=== PATIENT | male | born 1945 | race Caucasian/White ===

== ENCOUNTER 2021-08-01 17:42 | Inpatient (IN) | payer MEDICARE, OTHER ==
[2021-08-01] MEDS ORDERED: Sodium Chloride 0.9% 1000 ML 1,000 ML IV STA (18:25)
[2021-08-01] MEDS ORDERED: Sodium Chloride 0.9% 1000 ML 1,000 ML ONE (18:41)
[2021-08-01 18:52] LABS: Absolute Neutrophil Ct (ANC) 3.58 x10^3/uL (1.4-6.9); Basophil (Absolute #) 0.03 x10^3/uL (0-0.4); Eosinophil (Absolute #) 0 x10^3/uL (0-0.5); Hematocrit 44.6 % (42-50); Hemoglobin 14.1 g/dL (12.5-18.0); Lymphocyte (Absolute #) 0.32 x10^3/uL (1.0-4.6); Lymphocytes % 7.5 % (24.0-44.0); Mean Cell Volume 83.4 fL (78-100); Mean Corpuscular Hemoglobin 26.4 pg (26-32); Mean Corpuscular Hgb Concent. 31.6 g/dL (32-36); Mean Platelet Volume 10.5 fL (7.5-11.0); Monocyte (Absolute #) 0.31 x10^3/uL (0.0-1.3); Monocytes % 7.2 % (0.0-12.0); Neutrophil % 83.7 % (36.0-66.0); Platelet Count 99 x10^3/uL (150-450); Red Blood Count 5.35 x10^6/uL (4.1-5.6); Red Cell Distribution Width 13.9 % (11.5-14.0); White Blood Count 4.3 x10^3/uL (4.0-10.5)
[2021-08-01 19:04] LABS: ANION GAP 12.2 MEQ/L (5-15); Calcium 9.3 mg/dL (8.4-10.2); Creatinine 1 1.45 mg/dL (0.66-1.25); EST GLOMERULAR FILTRATION RATE 50.3 ML/MIN; Potassium 3.7 mmol/L (3.5-5.1); Total Protein 6.9 g/dL (6.3-8.2)
--- NOTE | 2021-08-01 19:07 | ERPHSYRPT ---
- History of Present Illness Time Seen by Provider: 08/01/21 18:20 Source: patient, family Exam Limitations: no limitations Patient Subjective Stated Complaint: Pt c/o of hypertension Triage Nursing Assessment: Pt brought to the ER by his , hypertensive, tachypnic, denies pain, cough, not feeling well, pulses normal, skin n/w/d, has been having headaches due to BP but not at this time, doctor recently changed his BP meds in the past couple of weeks Physician History: Patient is a 76-year-old white male who presents with his with a complaint of elevated blood pressure. He has home his blood pressure was running 190s. They called their nurse practitioner and asked that he be seen in the emergency room for hypertension. On arrival he was discovered to have a temperature of 103.1 reports he has been having chills and has been sick for several days. He had earlier today had a horrible headache he has been coughing has been disoriented. The patient is oriented at the time of arrival. He denies of present any pain in his O2 sats on arrival were in the low 90s. Timing/Duration: day(s) (Several) Fever Severity: moderate Fever Therapy PASSENGER SERVICE REPRESENTATIVE: none Associated Symptoms: confusion, cough, headache Allergies/Adverse Reactions: No Known Drug Allergies Allergy (Verified 08/01/21 18:16) Home Medications: Lisinopril 10 mg [Zestril 10 MG] 20 mg PO DAILY 02/01/16 [History] Finasteride 5 mg [Proscar 5 MG] 5 mg PO DAILY 12/02/20 [History] Omeprazole 40 mg PO DAILY 12/02/20 [History] Rosuvastatin Calcium 20 mg PO DAILY 12/02/20 [History] Carvedilol 3.125 mg [Coreg 3.125 MG] 3.125 mg PO BID 08/01/21 [History] Latanoprost/Pf [Latanoprost 0.005% Eye Drop] 1 drop OP UD 08/01/21 [History] Hx Tetanus, Diphtheria Vaccination/Date Given: No Hx Influenza Vaccination/Date Given: No Hx Pneumococcal Vaccination/Date Given: No Travel Risk - International Travel Have you traveled outside of the country in past 3 weeks: No - Coronavirus Screening Are you exhibiting any of the following symptoms?: No Close contact with a COVID-19 positive Pt in past 14-21 Days: No - Vaccine Status Have you recieved a Covid-19 vaccination: Yes Cell Room Operator: Moderna - Vaccination Dates Date of 2cond Vaccination (if applicable): 07/2020 - Review of Systems Constitutional: Fever, Chills, Weakness Eyes: No Symptoms Ears, Nose, & Throat: No Symptoms Respiratory: Cough, No Dyspnea Cardiac: No Chest Pain, No Edema, No Syncope Abdominal/Gastrointestinal: No Abdominal Pain, No Nausea, No Vomiting, No Diarrhea Genitourinary Symptoms: No Dysuria Musculoskeletal: No Back Pain, No Neck Pain Skin: No Rash Neurological: Headache, No Dizziness, No Focal Weakness, No Sensory Changes Endocrine: No Symptoms Hematologic/Lymphatic: No Symptoms Immunological/Allergic: No Symptoms All Other Systems: Reviewed and Negative - Past Medical History Pertinent Past Medical History: Yes Neurological History: Migraines ENT History: No Pertinent History Cardiac History: High Cholesterol, Hypertension Respiratory History: No Pertinent History Endocrine Medical History: No Pertinent History Musculoskeletal History: No Pertinent History GI Medical History: No Pertinent History History: No Pertinent History Psycho-Social History: No Pertinent History Male Reproductive Disorders: No Pertinent History - Past Surgical History Past Surgical History: Yes Neuro Surgical History: No Pertinent History Cardiac: No Pertinent History Respiratory: No Pertinent History Gastrointestinal: Appendectomy Genitourinary: No Pertinent History Musculoskeletal: No Pertinent History Male Surgical History: No Pertinent History Other Surgical History: prostate biopsy - Social History Smoking Status: Never smoker Exposure to second hand smoke: No Drug Use: none Patient Lives Alone: No - Nursing Vital Signs Nursing Vital Signs: Initial Vital Signs Temperature 103.1 F 08/01/21 18:05 Pulse Rate 91 H 08/01/21 18:05 Respiratory Rate 26 H 08/01/21 18:05 Blood Pressure 170/77 08/01/21 18:05 O2 Sat by Pulse Oximetry 91 L 08/01/21 18:05 Pain Scale Pain Intensity 0 - Physical Exam General Appearance: moderate distress, alert Eye Exam: PERRL/EOMI ENT Exam: normal ENT inspection, No pharyngeal erythema, No tonsillar exudate Neck Exam: supple, full range of motion, No meningismus Respiratory Exam: no respiratory distress, crackles/rales, wheezing Cardiovascular/Chest Exam: normal heart sounds, regular rate/rhythm, No murmur, No edema Gastrointestinal/Abdominal Exam: soft, non tender, no distention Extremity Exam: non-tender, normal range of motion, normal inspection, normal capillary refill Neurologic Exam: alert, oriented x 3, cooperative, plasterer stucco II-XII nml as tested, normal mood/affect, sensation nml, No motor deficits Skin Exam: normal color, warm, dry, No rash SpO2: 91 - Course Nursing assessment & vital signs reviewed: Yes EKG Interpreted by Me: RATE (89), Sinus Rhythm, Left [place] Deviation, Non- specific ST Changes, Other (Probable anteroseptal infarct old poor R wave progression) - Radiology Exams Chest X-ray Interpretation: Teleradiologist Report Ordered Tests: Active Orders 24 hr Category Date Time Status EKG-ER Only STAT Care 08/01/21 18:25 Active IV Insertion STAT Care 08/01/21 18:25 Active CHEST 1 VIEW (PORTABLE) Stat Exams 08/01/21 18:26 Taken HEAD WITHOUT CONTRAST [CT] Stat Exams 08/01/21 18:26 Taken BLOOD CULTURE Stat Lab 08/01/21 18:48 Received CBC W DIFF Stat Lab 08/01/21 18:45 Completed CMP Stat Lab 08/01/21 18:45 Completed Lactic Acid Stat Lab 08/01/21 18:35 Completed [place] Screen Stat Lab 08/01/21 18:47 Completed TROPONIN Q3H Lab 08/01/21 18:48 Completed TROPONIN Q3H Lab 08/01/21 21:30 Ordered UA W/RFX CULTURE Stat Lab 08/01/21 Ordered Medication Summary Generic Name Dose Route Start Last Admin Trade Name Freq PRN Reason Stop Dose Admin Acetaminophen 1,000 mg 08/01/21 19:34 08/01/21 19:37 Acetaminophen 500 Mg Tablet PO 08/31/21 19:33 1,000 mg Q4H PRN PRN Administration HEADACHE Discontinued Medications Generic Name Dose Route Start Last Admin Trade Name Freq PRN Reason Stop Dose Admin Sodium Chloride 1,000 mls @ 999 mls/hr 08/01/21 18:25 08/01/21 18:45 Sodium Chloride 0.9% 1000 Ml IV 08/01/21 19:25 999 mls/hr .Q1H1M STA Administration Sodium Chloride Confirm 08/01/21 18:41 Sodium Chloride 0.9% 1000 Ml Administered 08/01/21 18:42 Dose 1,000 mls @ ud .ROUTE .STK-MED ONE Lab/Rad Data: Laboratory Result Diagrams 08/01/21 18:45 08/01/21 18:45 Laboratory Results 08/01/21 08/01/21 08/01/21 Range/Units 18:48 18:47 18:47 WBC (4.0-10.5) x10^3/uL RBC (4.1-5.6) x10^6/uL Hgb (12.5-18.0) g/dL Hct (42-50) % MCV (78-100) fL MCH (26-32) pg MCHC (32-36) g/dL RDW (11.5-14.0) % Plt Count (150-450) x10^3/uL MPV (7.5-11.0) fL Gran % (36.0-66.0) % Immature Gran % (Auto) (0.00-0.4) % Nucleat RBC Rel Count (0.00-0.1) % Eos # (Auto) (0-0.5) x10^3/uL Immature Gran # (Auto) (0.00-0.03) x10^3u/L Absolute Lymphs (auto) (1.0-4.6) x10^3/uL Absolute Monos (auto) (0.0-1.3) x10^3/uL Absolute Nucleated RBC (0.00-0.01) x10^3u/L Lymphocytes % (24.0-44.0) % Monocytes % (0.0-12.0) % Eosinophils % (0.00-5.0) % Basophils % (0.0-0.4) % Absolute Granulocytes (1.4-6.9) x10^3/uL Basophils # (0-0.4) x10^3/uL Sodium (137-145) mmol/L Potassium (3.5-5.1) mmol/L Chloride (98-107) mmol/L Carbon Dioxide (22-30) mmol/L Anion Gap (5-15) MEQ/L BUN (9-20) mg/dL Creatinine (0.66-1.25) mg/dL Estimated GFR ML/MIN Glucose (74-106) mg/dL Lactic Acid (0.4-2.0) Calcium (8.4-10.2) mg/dL Total Bilirubin (0.2-1.3) mg/dL AST (17-59) U/L ALT (0-50) U/L Alkaline Phosphatase (38-126) U/L Troponin I 0.017 (0.000-0.034) ng/mL Serum Total Protein (6.3-8.2) g/dL Albumin (3.5-5.0) g/dL Monoscreen NEGATIVE (Negative) Influenza Type A Ag NEGATIVE (NEGATIVE) Influenza Type B Ag NEGATIVE (NEGATIVE) RSV (PCR) NEGATIVE (Negative) SARS-CoV-2 (PCR) NEGATIVE (NEGATIVE) 08/01/21 08/01/21 08/01/21 Range/Units 18:45 18:45 18:35 WBC 4.3 (4.0-10.5) x10^3/uL RBC 5.35 (4.1-5.6) x10^6/uL Hgb 14.1 (12.5-18.0) g/dL Hct 44.6 (42-50) % MCV 83.4 (78-100) fL MCH 26.4 (26-32) pg MCHC 31.6 L (32-36) g/dL RDW 13.9 (11.5-14.0) % Plt Count 99 L (150-450) x10^3/uL MPV 10.5 (7.5-11.0) fL Gran % 83.7 H (36.0-66.0) % Immature Gran % (Auto) 0.9 H (0.00-0.4) % Nucleat RBC Rel Count 0.0 (0.00-0.1) % Eos # (Auto) 0 (0-0.5) x10^3/uL Immature Gran # (Auto) 0.04 H (0.00-0.03) x10^3u/L Absolute Lymphs (auto) 0.32 L (1.0-4.6) x10^3/uL Absolute Monos (auto) 0.31 (0.0-1.3) x10^3/uL Absolute Nucleated RBC 0.00 (0.00-0.01) x10^3u/L Lymphocytes % 7.5 L (24.0-44.0) % Monocytes % 7.2 (0.0-12.0) % Eosinophils % 0.0 (0.00-5.0) % Basophils % 0.7 (0.0-0.4) % Absolute Granulocytes 3.58 (1.4-6.9) x10^3/uL Basophils # 0.03 (0-0.4) x10^3/uL Sodium 138 (137-145) mmol/L Potassium 3.7 (3.5-5.1) mmol/L Chloride 102 (98-107) mmol/L Carbon Dioxide 27 (22-30) mmol/L Anion Gap 12.2 (5-15) MEQ/L BUN 29 H (9-20) mg/dL Creatinine 1.45 H (0.66-1.25) mg/dL Estimated GFR 50.3 ML/MIN Glucose 106 (74-106) mg/dL Lactic Acid 1.9 (0.4-2.0) Calcium 9.3 (8.4-10.2) mg/dL Total Bilirubin 1.00 (0.2-1.3) mg/dL AST 47 (17-59) U/L ALT 25 (0-50) U/L Alkaline Phosphatase 61 (38-126) U/L Troponin I (0.000-0.034) ng/mL Serum Total Protein 6.9 (6.3-8.2) g/dL Albumin 4.0 (3.5-5.0) g/dL Monoscreen (Negative) Influenza Type A Ag (NEGATIVE) Influenza Type B Ag (NEGATIVE) RSV (PCR) (Negative) SARS-CoV-2 (PCR) (NEGATIVE) - Progress Progress: improved Discussed with : Etelvina Will see patient in: hospital (observation) - Departure Departure Disposition: Observation Clinical Impression: Pneumonia Condition: Stable Critical Care Time: No Referrals: SERGE COWART NP [Primary Care Provider] - Follow up/PCP as directed
[2021-08-01 19:37] LABS: INFLUENZA A NEGATIVE (NEGATIVE); INFLUENZA B NEGATIVE (NEGATIVE); RESPIRATORY SYNCTIAL VIRUS NEGATIVE (Negative); SARS-CoV-2 Xpert Express NEGATIVE (NEGATIVE)
[2021-08-01] MEDS: TYLENOL EXTRA STRENGTH 500 MG PO PRN (19:37)
[2021-08-01] MEDS ORDERED: TORAdol 30 mg Injection IV PRN (19:46)
[2021-08-01] MEDS ORDERED: ROCEPHIN 1 Gm-D5w 50 ml Bag** 1 G/50 ML IVPB IV ONE (20:01)
[2021-08-01] MEDS: MOTRIN 600 MG PO PRN (21:05)
[2021-08-01] MEDS: Sodium Chloride 0.9% 1000 ML 1,000 ML IV SCH (21:05)
--- NOTE | 2021-08-01 21:51 | XRAY ---
Indication: High blood pressure. Comparison: July 03, 2016. Portable chest again hyperinflated with new mild right base infiltrate/atelectasis. Stable right lung calcified granulomas. Remaining heart and lungs unremarkable. Bony thorax intact. Comment: Preliminary interpretation made by [facility]. No critical discrepancy.
--- NOTE | 2021-08-01 21:53 | XRAY ---
Indication: High blood pressure. Fever. Multiple contiguous axial images obtained through the head without contrast. Comparison: None Age-appropriate global atrophy, minimal periventricular degenerative micro-ischemia bilaterally, and small focus old infarct right frontal lobe. No acute intracranial hemorrhage, abnormal extra-axial fluid collection, or mass effect. Fourth ventricle is midline without hydrocephalus. Bony calvarium intact. Visualized paranasal sinuses and mastoid air cells are clear. 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 Comment: Preliminary interpretation made by [facility]. No critical discrepancy.
[2021-08-01] MEDS ORDERED: Zithromax 500 MG/ 250 ML NaCl Premix 500 MG/250 ML IVPB IV SCH (22:00)
[2021-08-01] MEDS ORDERED: Coreg 3.125 MG PO ONE (22:00)
[2021-08-01] MEDS ORDERED: Zestril 20 MG PO ONE (22:00)
[2021-08-02] MEDS: TYLENOL EXTRA STRENGTH 500 MG PO PRN (02:40)
[2021-08-02] MEDS ORDERED: DUONEB 0.5-3 MG/3 ml Neb IH ONE (02:53)
[2021-08-02] MEDS ORDERED: DUONEB 0.5-3 MG/3 ml Neb IH PRN (02:55)
[2021-08-02 04:14] LABS: Mucus SLIGHT /HPF (NEGATIVE); RBC 0-2 /HPF (0-2)
[2021-08-02 04:15] LABS: Appearance CLEAR (CLEAR); Bilirubin NEGATIVE (NEGATIVE); Dipstick done @ ? MAIN LAB; Glucose NEGATIVE (NEGATIVE); Ketones NEGATIVE (NEGATIVE); Nitrite NEGATIVE (NEGATIVE); Ph 5.5 (5-6); Protein,Urine Dip 100 (Negative); RBC NEGATIVE Ery/ul (0-5); Specific Gravity 1.025 (1.005-1.025); Urobilinogen 1 mg/dL (0-1)
[2021-08-02 04:16] LABS: Bacteria NONE SEEN /HPF (NEGATIVE); Urine Cultured Indicated? NO
[2021-08-02 06:03] LABS: Hematocrit 37.1 % (42-50); Mean Corpuscular Hemoglobin 26.2 pg (26-32); Mean Corpuscular Hgb Concent. 32.3 g/dL (32-36); Mean Platelet Volume 10.8 fL (7.5-11.0); Platelet Count 88 x10^3/uL (150-450); Red Blood Count 4.58 x10^6/uL (4.1-5.6); Red Cell Distribution Width 14.3 % (11.5-14.0); White Blood Count 4.6 x10^3/uL (4.0-10.5)
[2021-08-02 06:19] LABS: ALBUMIN 3.2 g/dL (3.5-5.0); ANION GAP 13.3 MEQ/L (5-15); BILIRUBIN,TOTAL 0.9 mg/dL (0.2-1.3); Calcium 8.8 mg/dL (8.4-10.2); Creatinine 1 1.28 mg/dL (0.66-1.25); EST GLOMERULAR FILTRATION RATE 58.1 ML/MIN; Potassium 3.4 mmol/L (3.5-5.1); Total Protein 5.6 g/dL (6.3-8.2)
[2021-08-02 06:22] LABS: INR 1.18 (0.8-3.0); PROTIME 12.3 SECONDS (9.4-12.5)
[2021-08-02] MEDS: Sodium Chloride 0.9% 1000 ML 1,000 ML IV SCH ×2 (08:25→18:17)
[2021-08-02] MEDS ORDERED: ROCEPHIN 1 Gm-D5w 50 ml Bag** 1 G/50 ML IVPB IV SCH (10:00)
[2021-08-02] MEDS ORDERED: Zithromax 500 MG/ 250 ML NaCl Premix 500 MG/250 ML IVPB IV SCH (10:00)
--- NOTE | 2021-08-02 10:54 | PCM.HP ---
History of Present Illness - Chief Complaint Chief Complaint: Pneumonia History of Present Illness: Mr.HALE HERRERA is a 76 year old male who presented to the ER with headache and elevated blood pressure, he has had some nonproductive cough. was found to have a high fever and pneumonia in ER, bp is under better control and he was admitted for treatment of pneumonia, he has no chest pain, requiring oxygen currently. - Review of Systems Constitutional: Fever, Chills, Fatigue Respiratory: Cough Cardiac: No Chest Pain, No Edema, No Syncope Abdominal/Gastrointestinal: No Abdominal Pain, No Nausea, No Vomiting, No Diarrhea Genitourinary Symptoms: No Dysuria Skin: No Rash Neurological: No Dizziness, No Focal Weakness, No Sensory Changes All Other Systems: Reviewed and Negative Medications & Allergies Home Medications: Home Medication List Lisinopril 10 mg [Zestril 10 MG] 20 mg PO BID 02/01/16 [History Confirmed 08/01/21] Finasteride 5 mg [Proscar 5 MG] 5 mg PO DAILY 12/02/20 [History Confirmed 08/01/21] Omeprazole 40 mg PO DAILY 12/02/20 [History Confirmed 08/01/21] Rosuvastatin Calcium 20 mg PO DAILY 12/02/20 [History Confirmed 08/01/21] Carvedilol 3.125 mg [Coreg 3.125 MG] 3.125 mg PO BID 08/01/21 [History Con firmed 08/01/21] Latanoprost/Pf [Latanoprost 0.005% Eye Drop] 1 drop OP HS 08/01/21 [History Confirmed 08/01/21] Allergies/Adverse Reactions: Allergies Allergy/AdvReac Type Severity Reaction Status Date / Time No Known Drug Allergies Allergy Verified 08/01/21 18:16 - Past Medical History Past Medical History: Yes Neurological History: Migraines ENT History: Glaucoma Cardiac History: High Cholesterol, Hypertension Respiratory History: Pneumonia Endocrine Medical History: No Pertinent History Musculoskelatal History: No Pertinent History GI Medical History: GERD History: No Pertinent History Pyscho-Social History: Anxiety Male Reproductive Disorders: Prostate Cancer - Past Surgical History Past Surgical History: Yes Neuro Surgical History: No Pertinent History Cardiac History: No Pertinent History Respiratory Surgery: No Pertinent History GI Surgical History: Appendectomy Genitourinary Surgical Hx: No Pertinent History Musculskeletal Surgical Hx: No Pertinent History Male Surgical History: Other Other Surgical History: prostate biopsy - Social History Smoking Status: Former smoker Exposure to second hand smoke: No Alcohol: Rarely Drug Use: none - Physical Exam Vital Signs: Vital Signs - 24 hr Temp Pulse Resp BP Pulse Ox 08/02/21 07:41 98.7 F 73 16 127/61 97 08/02/21 07:00 85 18 91 L 08/02/21 04:00 98.9 F 87 24 124/56 92 L 08/02/21 02:56 59 L 24 95 08/02/21 02:20 98.1 F 08/02/21 00:00 97.6 F 57 L 16 129/60 94 L 08/01/21 21:59 100.3 F 08/01/21 20:26 102.4 F 88 16 164/74 94 L 08/01/21 19:45 91 L 08/01/21 18:05 103.1 F 91 H 26 H 170/77 91 L General Appearance: no apparent distress Neurologic Exam: alert, oriented x 3 Respiratory Exam: crackles/rales, rhonchi Cardiovascular Exam: regular rate/rhythm, normal heart sounds, normal peripheral pulses Gastrointestinal/Abdomen Exam: soft, normal bowel sounds, No tenderness, No mass Extremity Exam: normal inspection, normal range of motion, pelvis stable Skin Exam: normal color, warm, dry, No rash Results - Labs Lab/Micro Results: Lab Results-Last 24 Hours 08/01/21 08/01/21 08/01/21 Range/Units 03:59 18:35 18:45 WBC 4.3 (4.0-10.5) x10^3/uL RBC 5.35 (4.1-5.6) x10^6/uL Hgb 14.1 (12.5-18.0) g/dL Hct 44.6 (42-50) % MCV 83.4 (78-100) fL MCH 26.4 (26-32) pg MCHC 31.6 L (32-36) g/dL RDW 13.9 (11.5-14.0) % Plt Count 99 L (150-450) x10^3/uL MPV 10.5 (7.5-11.0) fL Gran % 83.7 H (36.0-66.0) % Immature Gran % (Auto) 0.9 H (0.00-0.4) % Nucleat RBC Rel Count 0.0 (0.00-0.1) % Eos # (Auto) 0 (0-0.5) x10^3/uL Immature Gran # (Auto) 0.04 H (0.00-0.03) x10^3u/L Absolute Lymphs (auto) 0.32 L (1.0-4.6) x10^3/uL Absolute Monos (auto) 0.31 (0.0-1.3) x10^3/uL Absolute Nucleated RBC 0.00 (0.00-0.01) x10^3u/L Lymphocytes % 7.5 L (24.0-44.0) % Monocytes % 7.2 (0.0-12.0) % Eosinophils % 0.0 (0.00-5.0) % Basophils % 0.7 (0.0-0.4) % Absolute Granulocytes 3.58 (1.4-6.9) x10^3/uL Basophils # 0.03 (0-0.4) x10^3/uL PT (9.4-12.5) SECONDS INR (0.8-3.0) Sodium (137-145) mmol/L Potassium (3.5-5.1) mmol/L Chloride (98-107) mmol/L Carbon Dioxide (22-30) mmol/L Anion Gap (5-15) MEQ/L BUN (9-20) mg/dL Creatinine (0.66-1.25) mg/dL Estimated GFR ML/MIN Glucose (74-106) mg/dL Lactic Acid 1.9 (0.4-2.0) Calcium (8.4-10.2) mg/dL Total Bilirubin (0.2-1.3) mg/dL AST (17-59) U/L ALT (0-50) U/L Alkaline Phosphatase (38-126) U/L Troponin I (0.000-0.034) ng/mL Serum Total Protein (6.3-8.2) g/dL Albumin (3.5-5.0) g/dL Urinalys Dipstick Clnc MAIN LAB Urine Color YELLOW (YELLOW) Urine Appearance CLEAR (CLEAR) Urine pH 5.5 (5-6) Ur Specific [place] 1.025 (1.005-1.025) POC Urine Protein Conf 100 (Negative) Urine Ketones NEGATIVE (NEGATIVE) Urine Nitrite NEGATIVE (NEGATIVE) Urine Bilirubin NEGATIVE (NEGATIVE) Urine Urobilinogen 1 (0-1) mg/dL Urine Leukocytes NEGATIVE (NEGATIVE) Urine WBC (Auto) NONE (0-5) /HPF Urine RBC (Auto) 0-2 (0-2) /HPF U Epithel Cells (Auto) NONE (FEW) /HPF Urine Bacteria (Auto) NONE SEEN (NEGATIVE) /HPF Urine RBC NEGATIVE (0-5) Ray/ul Urine Mucus (Auto) SLIGHT (NEGATIVE) /HPF Ur Culture Indicated? NO Urine Glucose NEGATIVE (NEGATIVE) mg/dL Monoscreen (Negative) Influenza Type A Ag (NEGATIVE) Influenza Type B Ag (NEGATIVE) RSV (PCR) (Negative) SARS-CoV-2 (PCR) (NEGATIVE) 08/01/21 08/01/21 08/01/21 Range/Units 18:45 18:47 18:47 WBC (4.0-10.5) x10^3/uL RBC (4.1-5.6) x10^6/uL Hgb (12.5-18.0) g/dL Hct (42-50) % MCV (78-100) fL MCH (26-32) pg MCHC (32-36) g/dL RDW (11.5-14.0) % Plt Count (150-450) x10^3/uL MPV (7.5-11.0) fL Gran % (36.0-66.0) % Immature Gran % (Auto) (0.00-0.4) % Nucleat RBC Rel Count (0.00-0.1) % Eos # (Auto) (0-0.5) x10^3/uL Immature Gran # (Auto) (0.00-0.03) x10^3u/L Absolute Lymphs (auto) (1.0-4.6) x10^3/uL Absolute Monos (auto) (0.0-1.3) x10^3/uL Absolute Nucleated RBC (0.00-0.01) x10^3u/L Lymphocytes % (24.0-44.0) % Monocytes % (0.0-12.0) % Eosinophils % (0.00-5.0) % Basophils % (0.0-0.4) % Absolute Granulocytes (1.4-6.9) x10^3/uL Basophils # (0-0.4) x10^3/uL PT (9.4-12.5) SECONDS INR (0.8-3.0) Sodium 138 (137-145) mmol/L Potassium 3.7 (3.5-5.1) mmol/L Chloride 102 (98-107) mmol/L Carbon Dioxide 27 (22-30) mmol/L Anion Gap 12.2 (5-15) MEQ/L BUN 29 H (9-20) mg/dL Creatinine 1.45 H (0.66-1.25) mg/dL Estimated GFR 50.3 ML/MIN Glucose 106 (74-106) mg/dL Lactic Acid (0.4-2.0) Calcium 9.3 (8.4-10.2) mg/dL Total Bilirubin 1.00 (0.2-1.3) mg/dL AST 47 (17-59) U/L ALT 25 (0-50) U/L Alkaline Phosphatase 61 (38-126) U/L Troponin I (0.000-0.034) ng/mL Serum Total Protein 6.9 (6.3-8.2) g/dL Albumin 4.0 (3.5-5.0) g/dL Urinalys Dipstick Clnc Urine Color (YELLOW) Urine Appearance (CLEAR) Urine pH (5-6) Ur Specific [place] (1.005-1.025) POC Urine Protein Conf (Negative) Urine Ketones (NEGATIVE) Urine Nitrite (NEGATIVE) Urine Bilirubin (NEGATIVE) Urine Urobilinogen (0-1) mg/dL Urine Leukocytes (NEGATIVE) Urine WBC (Auto) (0-5) /HPF Urine RBC (Auto) (0-2) /HPF U Epithel Cells (Auto) (FEW) /HPF Urine Bacteria (Auto) (NEGATIVE) /HPF Urine RBC (0-5) Ray/ul Urine Mucus (Auto) (NEGATIVE) /HPF Ur Culture Indicated? Urine Glucose (NEGATIVE) mg/dL Monoscreen NEGATIVE (Negative) Influenza Type A Ag NEGATIVE (NEGATIVE) Influenza Type B Ag NEGATIVE (NEGATIVE) RSV (PCR) NEGATIVE (Negative) SARS-CoV-2 (PCR) NEGATIVE (NEGATIVE) 08/01/21 08/01/21 08/02/21 Range/Units 18:48 21:41 05:20 WBC 4.6 (4.0-10.5) x10^3/uL RBC 4.58 (4.1-5.6) x10^6/uL Hgb 12.0 L (12.5-18.0) g/dL Hct 37.1 L (42-50) % MCV 81.0 (78-100) fL MCH 26.2 (26-32) pg MCHC 32.3 (32-36) g/dL RDW 14.3 H (11.5-14.0) % Plt Count 88 L (150-450) x10^3/uL MPV 10.8 (7.5-11.0) fL Gran % (36.0-66.0) % Immature Gran % (Auto) (0.00-0.4) % Nucleat RBC Rel Count (0.00-0.1) % Eos # (Auto) (0-0.5) x10^3/uL Immature Gran # (Auto) (0.00-0.03) x10^3u/L Absolute Lymphs (auto) (1.0-4.6) x10^3/uL Absolute Monos (auto) (0.0-1.3) x10^3/uL Absolute Nucleated RBC (0.00-0.01) x10^3u/L Lymphocytes % (24.0-44.0) % Monocytes % (0.0-12.0) % Eosinophils % (0.00-5.0) % Basophils % (0.0-0.4) % Absolute Granulocytes (1.4-6.9) x10^3/uL Basophils # (0-0.4) x10^3/uL PT (9.4-12.5) SECONDS INR (0.8-3.0) Sodium (137-145) mmol/L Potassium (3.5-5.1) mmol/L Chloride (98-107) mmol/L Carbon Dioxide (22-30) mmol/L Anion Gap (5-15) MEQ/L BUN (9-20) mg/dL Creatinine (0.66-1.25) mg/dL Estimated GFR ML/MIN Glucose (74-106) mg/dL Lactic Acid (0.4-2.0) Calcium (8.4-10.2) mg/dL Total Bilirubin (0.2-1.3) mg/dL AST (17-59) U/L ALT (0-50) U/L Alkaline Phosphatase (38-126) U/L Troponin I 0.017 0.029 (0.000-0.034) ng/mL Serum Total Protein (6.3-8.2) g/dL Albumin (3.5-5.0) g/dL Urinalys Dipstick Clnc Urine Color (YELLOW) Urine Appearance (CLEAR) Urine pH (5-6) Ur Specific [place] (1.005-1.025) POC Urine Protein Conf (Negative) Urine Ketones (NEGATIVE) Urine Nitrite (NEGATIVE) Urine Bilirubin (NEGATIVE) Urine Urobilinogen (0-1) mg/dL Urine Leukocytes (NEGATIVE) Urine WBC (Auto) (0-5) /HPF Urine RBC (Auto) (0-2) /HPF U Epithel Cells (Auto) (FEW) /HPF Urine Bacteria (Auto) (NEGATIVE) /HPF Urine RBC (0-5) Ray/ul Urine Mucus (Auto) (NEGATIVE) /HPF Ur Culture Indicated? Urine Glucose (NEGATIVE) mg/dL Monoscreen (Negative) Influenza Type A Ag (NEGATIVE) Influenza Type B Ag (NEGATIVE) RSV (PCR) (Negative) SARS-CoV-2 (PCR) (NEGATIVE) 08/02/21 08/02/21 Range/Units 05:20 05:20 WBC (4.0-10.5) x10^3/uL RBC (4.1-5.6) x10^6/uL Hgb (12.5-18.0) g/dL Hct (42-50) % MCV (78-100) fL MCH (26-32) pg MCHC (32-36) g/dL RDW (11.5-14.0) % Plt Count (150-450) x10^3/uL MPV (7.5-11.0) fL Gran % (36.0-66.0) % Immature Gran % (Auto) (0.00-0.4) % Nucleat RBC Rel Count (0.00-0.1) % Eos # (Auto) (0-0.5) x10^3/uL Immature Gran # (Auto) (0.00-0.03) x10^3u/L Absolute Lymphs (auto) (1.0-4.6) x10^3/uL Absolute Monos (auto) (0.0-1.3) x10^3/uL Absolute Nucleated RBC (0.00-0.01) x10^3u/L Lymphocytes % (24.0-44.0) % Monocytes % (0.0-12.0) % Eosinophils % (0.00-5.0) % Basophils % (0.0-0.4) % Absolute Granulocytes (1.4-6.9) x10^3/uL Basophils # (0-0.4) x10^3/uL PT 12.3 (9.4-12.5) SECONDS INR 1.18 (0.8-3.0) Sodium 139 (137-145) mmol/L Potassium 3.4 L (3.5-5.1) mmol/L Chloride 106 (98-107) mmol/L Carbon Dioxide 23 (22-30) mmol/L Anion Gap 13.3 (5-15) MEQ/L BUN 32 H (9-20) mg/dL Creatinine 1.28 H (0.66-1.25) mg/dL Estimated GFR 58.1 ML/MIN Glucose 131 H (74-106) mg/dL Lactic Acid (0.4-2.0) Calcium 8.8 (8.4-10.2) mg/dL Total Bilirubin 0.90 (0.2-1.3) mg/dL AST 55 (17-59) U/L ALT 28 (0-50) U/L Alkaline Phosphatase 56 (38-126) U/L Troponin I (0.000-0.034) ng/mL Serum Total Protein 5.6 L (6.3-8.2) g/dL Albumin 3.2 L (3.5-5.0) g/dL Urinalys Dipstick Clnc Urine Color (YELLOW) Urine Appearance (CLEAR) Urine pH (5-6) Ur Specific [place] (1.005-1.025) POC Urine Protein Conf (Negative) Urine Ketones (NEGATIVE) Urine Nitrite (NEGATIVE) Urine Bilirubin (NEGATIVE) Urine Urobilinogen (0-1) mg/dL Urine Leukocytes (NEGATIVE) Urine WBC (Auto) (0-5) /HPF Urine RBC (Auto) (0-2) /HPF U Epithel Cells (Auto) (FEW) /HPF Urine Bacteria (Auto) (NEGATIVE) /HPF Urine RBC (0-5) Ray/ul Urine Mucus (Auto) (NEGATIVE) /HPF Ur Culture Indicated? Urine Glucose (NEGATIVE) mg/dL Monoscreen (Negative) Influenza Type A Ag (NEGATIVE) Influenza Type B Ag (NEGATIVE) RSV (PCR) (Negative) SARS-CoV-2 (PCR) (NEGATIVE) - Radiology Impressions Radiology Exams & Impressions: Radiology Procedures Category Date Time Status CHEST 1 VIEW (PORTABLE) Stat Exams 08/01/21 18:26 Completed HEAD WITHOUT CONTRAST [CT] Stat Exams 08/01/21 18:26 Completed - Other Procedures and Tests Respiratory Therapy 08/01/21 19:46 Oxygen Nasal Cannula 2 lpm 08/02/21 02:56 Respiratory Therapy Assessment DAILY Assessment/Plan (1) Pneumonia Current Visit: Yes Status: Acute Assessment & Plan: CAP, rocephin/zithromax, fluids and oxygen. will monitor Code(s): J18.9 - PNEUMONIA, UNSPECIFIED ORGANISM (2) Hypertension Current Visit: Yes Status: Acute Assessment & Plan: currently well controlled on home lisinopril and coreg, will monitor Code(s): I10 - ESSENTIAL (PRIMARY) HYPERTENSION
[2021-08-02] MEDS: Coreg 3.125 MG PO SCH ×2 (13:14→21:11)
[2021-08-02] MEDS: Zestril 20 MG PO SCH ×2 (13:14→21:11)
[2021-08-02] MEDS: MOTRIN 600 MG PO PRN ×2 (13:14→21:10)
[2021-08-02] MEDS: Protonix 40MG Tablet PO SCH (13:14)
[2021-08-02] MEDS: ENOXAPARIN SODIUM SQ SCH (13:15)
[2021-08-02] MEDS: Proscar 5 MG PO SCH (13:15)
[2021-08-02 14:32] LABS: Lymphocytes 13 % (24-44); Platelet Estimate DECREASED (NORMAL); Total Cells Counted 100
[2021-08-02 14:33] LABS: ANISOCYTOSIS 1+
[2021-08-02] MEDS: Xalatan OP SCH (21:11)
[2021-08-02] MEDS: ROCEPHIN 1 Gm-D5w 50 ml Bag** 1 G/50 ML IVPB IV SCH (21:11)
[2021-08-02] MEDS: Zithromax 500 MG/ 250 ML NaCl Premix 500 MG/250 ML IVPB IV SCH (21:58)
[2021-08-02] MEDS ORDERED: NON-FORMULARY ITEM (Latanoprost/Pf [Latanoprost 0.005% Eye Drop] 7.5 ML Drops) OP SCH (22:00)
[2021-08-02] MEDS ORDERED: Zestril 10 MG PO SCH (22:00)
[2021-08-02] MEDS ORDERED: Xalatan OP SCH (22:00)
[2021-08-03] MEDS: MOTRIN 600 MG PO PRN ×2 (03:23→11:15)
[2021-08-03] MEDS: Sodium Chloride 0.9% 1000 ML 1,000 ML IV SCH ×2 (05:36→16:35)
[2021-08-03 06:19] LABS: Hematocrit 35.8 % (42-50); Hemoglobin 11.3 g/dL (12.5-18.0); Mean Cell Volume 84.2 fL (78-100); Mean Corpuscular Hemoglobin 26.6 pg (26-32); Mean Corpuscular Hgb Concent. 31.6 g/dL (32-36); Mean Platelet Volume 10.7 fL (7.5-11.0); Platelet Count 71 x10^3/uL (150-450); Red Blood Count 4.25 x10^6/uL (4.1-5.6); Red Cell Distribution Width 14.2 % (11.5-14.0)
[2021-08-03 06:38] LABS: ANION GAP 11.8 MEQ/L (5-15); BLOOD UREA NITROGEN 26 mg/dL (9-20); CHLORIDE 107 mmol/L (98-107); Calcium 8.7 mg/dL (8.4-10.2); Carbon Dioxide 25 mmol/L (22-30); Creatinine 1 1.16 mg/dL (0.66-1.25); EST GLOMERULAR FILTRATION RATE > 60.0 ML/MIN; Glucose 90 mg/dL (74-106); Potassium 3.7 mmol/L (3.5-5.1); SODIUM 141 mmol/L (137-145)
--- NOTE | 2021-08-03 08:11 | PCM.NOTE ---
Date and Time: 08/03/21 08 Subjective Assessment: patient is short of breath and feels very fatigue, cough is minimal and not producing much sputum Objective Exam General Appearance: mild distress (ill appearing) Respiratory Exam: normal breath sounds, lungs clear, No respiratory distress Cardiovascular Exam: regular rate/rhythm, normal heart sounds Gastrointestinal/Abdomen Exam: soft, No tenderness, No mass Extremity Exam: normal inspection, normal range of motion OBJECTIVE DATA Vital Signs: Vital Signs - 24 hr Temp Pulse Resp BP Pulse Ox 08/03/21 07:43 79 18 97 08/03/21 07:10 98.1 F 81 20 180/77 97 08/03/21 03:38 99.1 F 72 20 140/64 95 08/03/21 00:00 97.7 F 82 20 124/58 90 L 08/02/21 19:10 97.1 F 74 20 151/70 92 L 08/02/21 19:00 84 18 93 L 08/02/21 16:00 98.5 F 82 16 156/68 91 L 08/02/21 12:00 98.0 F 82 16 181/90 96 Pain Assessment - Last Documented Pain Intensity 0 Pain Scale Used [facility] Intake and Output: Intake & Output 07/31/21 08/01/21 08/02/21 08/03/21 11:59 11:59 11:59 11:59 Intake Total 1388 2650 Output Total 600 1300 Balance 788 1350 Weight 97.6 kg 97.3 kg Lab Results: Lab Results-Last 24 Hours 08/02/21 08/03/21 08/03/21 Range/Units 05:20 05:20 05:20 WBC 2.0 L (4.0-10.5) x10^3/uL RBC 4.25 (4.1-5.6) x10^6/uL Hgb 11.3 L (12.5-18.0) g/dL Hct 35.8 L (42-50) % MCV 84.2 (78-100) fL MCH 26.6 (26-32) pg MCHC 31.6 L (32-36) g/dL RDW 14.2 H (11.5-14.0) % Plt Count 71 L (150-450) x10^3/uL MPV 10.7 (7.5-11.0) fL Segmented Neutrophils 87 H (36.-66.) % Lymphocytes (Manual) 13 L (24-44) % Platelet Estimate DECREASED (NORMAL) RBC Morphology ABNORMAL Anisocytosis 1+ Sodium 141 (137-145) mmol/L Potassium 3.7 (3.5-5.1) mmol/L Chloride 107 (98-107) mmol/L Carbon Dioxide 25 (22-30) mmol/L Anion Gap 11.8 (5-15) MEQ/L BUN 26 H (9-20) mg/dL Creatinine 1.16 (0.66-1.25) mg/dL Estimated GFR > 60.0 ML/MIN Glucose 90 (74-106) mg/dL Calcium 8.7 (8.4-10.2) mg/dL Radiology Exams: Radiology Procedures Category Date Time Status CHEST 1 VIEW (PORTABLE) Stat Exams 08/01/21 18:26 Completed CHEST WITH CONTRAST [CT] Urgent Exams 08/03/21 08:08 Ordered HEAD WITHOUT CONTRAST [CT] Stat Exams 08/01/21 18:26 Completed Assessment/Plan (1) Pneumonia Current Visit: Yes Status: Acute Assessment & Plan: on rocephin/zithromax for CAP, plan to pursue CT as clinically patient appears more ill than expected based on xray and lab results/lung exam is clear Code(s): J18.9 - PNEUMONIA, UNSPECIFIED ORGANISM (2) Hypertension Current Visit: Yes Status: Acute Code(s): I10 - ESSENTIAL (PRIMARY) HYPERTENSION
[2021-08-03] MEDS: ENOXAPARIN SODIUM SQ SCH (09:55)
[2021-08-03] MEDS: Coreg 3.125 MG PO SCH ×2 (09:55→21:56)
[2021-08-03] MEDS: Protonix 40MG Tablet PO SCH (09:55)
[2021-08-03] MEDS: Zestril 20 MG PO SCH ×2 (09:55→21:56)
[2021-08-03] MEDS: Proscar 5 MG PO SCH (09:55)
[2021-08-03] MEDS ORDERED: NON-FORMULARY ITEM (Omeprazole [Omeprazole] 40 MG Capsule.Dr) PO SCH (10:00)
[2021-08-03 15:14] LABS: ANISOCYTOSIS RARE; BAND 10 % (0.0-2.0); Lymphocytes 5 % (24-44); Monocyte 4 % (0.0-12.0); Platelet Estimate DECREASED (NORMAL); Total Cells Counted 100; Toxic Granulation 1+
[2021-08-03] MEDS: TYLENOL EXTRA STRENGTH 500 MG PO PRN ×2 (16:36→22:33)
--- NOTE | 2021-08-03 20:56 | XRAY ---
Indication: Short of breath. Pneumonia. Pulmonary embolus. Mass. Multiple contiguous axial images obtained through the chest using 100 cc Isovue-370 contrast and PE protocol. Comparison: None There is good opacification of the pulmonary arteries to include the lobar and segmental branches. No pulmonary embolus. Heart not enlarged. Aorta is mildly arteriosclerotic without aneurysm/dissection. Small mediastinal and right hilar calcified nodes. No pathologic mediastinal/hilar lymphadenopathy. Lungs demonstrates moderate diffuse pulmonary emphysema with scattered peripheral fibrosis/scarring bilaterally and a few right lung calcified granulomas. No suspicious pulmonary mass, infiltrate, or effusion. Bony thorax intact with mild osteopenia and mild degenerative changes throughout the spine. Limited upper abdomen demonstrates fatty liver with small perihepatic fluid. Also 16.6 cm splenomegaly and tiny hepatic/splenic calcified granulomas. Impression: 1. Negative pulmonary embolus. No acute cardiopulmonary abnormalities. 2. Chronic findings including pulmonary emphysema, scattered fibrosis/scarring, fatty hepatomegaly with small perihepatic fluid, splenomegaly, and old granulomatous disease. Comment: Preliminary interpretation made by C. No critical discrepancy.
[2021-08-03] MEDS: Xalatan OP SCH (21:55)
[2021-08-03] MEDS: ROCEPHIN 1 Gm-D5w 50 ml Bag** 1 G/50 ML IVPB IV SCH (21:55)
[2021-08-03] MEDS: Zithromax 500 MG/ 250 ML NaCl Premix 500 MG/250 ML IVPB IV SCH (21:56)
[2021-08-04 05:01] LABS: Hematocrit 36.7 % (42-50); Hemoglobin 11.7 g/dL (12.5-18.0); Mean Cell Volume 82.3 fL (78-100); Mean Corpuscular Hemoglobin 26.2 pg (26-32); Mean Corpuscular Hgb Concent. 31.9 g/dL (32-36); Mean Platelet Volume 10.9 fL (7.5-11.0); Platelet Count 63 x10^3/uL (150-450); Red Blood Count 4.46 x10^6/uL (4.1-5.6); Red Cell Distribution Width 14.4 % (11.5-14.0)
[2021-08-04 05:33] LABS: ALBUMIN 3.2 g/dL (3.5-5.0); ALKALINE PHOSPHATASE 102 U/L (38-126); ANION GAP 11.3 MEQ/L (5-15); BLOOD UREA NITROGEN 21 mg/dL (9-20); CHLORIDE 105 mmol/L (98-107); Carbon Dioxide 27 mmol/L (22-30); Creatinine 1 1.11 mg/dL (0.66-1.25); EST GLOMERULAR FILTRATION RATE > 60.0 ML/MIN; Glucose 91 mg/dL (74-106); MAGNESIUM 1.8 mg/dL (1.6-2.3); Potassium 3.6 mmol/L (3.5-5.1); SGOT/AST 97 U/L (17-59); SGPT/ALT 48 U/L (0-50); SODIUM 139 mmol/L (137-145)
[2021-08-04 05:34] LABS: White Blood Count 1.7 x10^3/uL (4.0-10.5)
[2021-08-04] MEDS: Sodium Chloride 0.9% 1000 ML 1,000 ML IV SCH (06:09)
[2021-08-04 07:17] LABS: BAND 17 % (0.0-2.0); Eosinophil 1 % (0.00-3.0); Lymphocytes 11 % (24-44); Monocyte 4 % (0.0-12.0); Platelet Estimate DECREASED (NORMAL); Total Cells Counted 100
[2021-08-04] MEDS: Zestril 20 MG PO SCH ×2 (09:18→21:05)
[2021-08-04] MEDS: Protonix 40MG Tablet PO SCH (09:18)
[2021-08-04] MEDS: Coreg 3.125 MG PO SCH ×2 (09:19→21:04)
[2021-08-04] MEDS: Proscar 5 MG PO SCH (09:19)
[2021-08-04] MEDS: ENOXAPARIN SODIUM SQ SCH (09:20)
[2021-08-04] MEDS: TYLENOL EXTRA STRENGTH 500 MG PO PRN (14:19)
[2021-08-04] MEDS ORDERED: Ativan 0.5 MG PO PRN (14:34)
[2021-08-04] MEDS: Zithromax 500 MG/ 250 ML NaCl Premix 500 MG/250 ML IVPB IV SCH (21:04)
[2021-08-04] MEDS: ROCEPHIN 1 Gm-D5w 50 ml Bag** 1 G/50 ML IVPB IV SCH (21:04)
[2021-08-04] MEDS: Xalatan OP SCH (21:05)
--- NOTE | 2021-08-04 23:40 | PCM.NOTE ---
Date and Time: 08/04/212335 Subjective Assessment: Hosp for tx Pneumonia ,todays labs pancytopenia WBC=1.5 [address] spiked fever [address] Aguilar consulted by phone who advised continue present care and monitor CBC. Has Hx melanoma.Patient is a little restless but alert and oriented. Denies pain or dyspnea ,no N/V. at bedside. Reviewed labs and answered questions. - Review of Systems Constitutional: Fatigue Eyes: No Symptoms Ears, Nose, & Throat: No Symptoms Respiratory: No Symptoms Cardiac: No Symptoms Abdominal/Gastrointestinal: No Symptoms Genitourinary Symptoms: No Symptoms Musculoskeletal: Arthralgias Skin: No Symptoms Neurological: No Symptoms Psychological: Anxiety Endocrine: No Symptoms Objective Exam General Appearance: anxiety (NAD) Neurologic Exam: alert, oriented x 3, cooperative, normal mood/affect (other than being restless) Skin Exam: other (suntaned, no diaphoresis) Eye Exam: eyes nml inspection Ears, Nose, Throat Exam: normal ENT inspection, pharynx normal Neck Exam: normal inspection Respiratory Exam: normal breath sounds OBJECTIVE DATA Vital Signs: Vital Signs - 24 hr Temp Pulse Resp BP Pulse Ox 08/04/21 19:00 98.4 F 79 17 194/85 90 L 08/04/21 18:59 79 17 90 L 08/04/21 14:30 100.9 F 08/04/21 12:00 103.1 F 89 18 185/88 95 08/04/21 08:33 93 L 08/04/21 08:00 98.5 F 79 16 134/62 93 L 08/04/21 04:30 98.3 F 81 20 182/81 91 L Pain Assessment - Last Documented Pain Intensity 0 Pain Scale Used 0-10 Pain Scale Intake and Output: Intake & Output 08/02/21 08/03/21 08/04/21 08/05/21 11:59 11:59 11:59 11:59 Intake Total 1388 2650 4449 520 Output Total 600 1700 1125 700 Balance 290 572 0523 -180 Weight 97.6 kg 97.3 kg Lab Results: Lab Results-Last 24 Hours 08/04/21 08/04/21 Range/Units 04:25 04:25 WBC 1.7 L* (4.0-10.5) x10^3/uL RBC 4.46 (4.1-5.6) x10^6/uL Hgb 11.7 L (12.5-18.0) g/dL Hct 36.7 L (42-50) % MCV 82.3 (78-100) fL MCH 26.2 (26-32) pg MCHC 31.9 L (32-36) g/dL RDW 14.4 H (11.5-14.0) % Plt Count 63 L (150-450) x10^3/uL MPV 10.9 (7.5-11.0) fL Segmented Neutrophils 67 H (36.-66.) % Band Neutrophils 17 H (0.0-2.0) % Lymphocytes (Manual) 11 L (24-44) % Monocytes (Manual) 4 (0.0-12.0) % Eosinophils (Manual) 1 (0.00-3.0) % Platelet Estimate DECREASED (NORMAL) RBC Morphology NORMAL Sodium 139 (137-145) mmol/L Potassium 3.6 (3.5-5.1) mmol/L Chloride 105 (98-107) mmol/L Carbon Dioxide 27 (22-30) mmol/L Anion Gap 11.3 (5-15) MEQ/L BUN 21 H (9-20) mg/dL Creatinine 1.11 (0.66-1.25) mg/dL Estimated GFR > 60.0 ML/MIN Glucose 91 (74-106) mg/dL Calcium 9.0 (8.4-10.2) mg/dL Magnesium 1.8 (1.6-2.3) mg/dL Total Bilirubin 1.10 (0.2-1.3) mg/dL AST 97 H (17-59) U/L ALT 48 (0-50) U/L Alkaline Phosphatase 102 (38-126) U/L Serum Total Protein 6.0 L (6.3-8.2) g/dL Albumin 3.2 L (3.5-5.0) g/dL Radiology Exams: Radiology Procedures Category Date Time Status CHEST WITH CONTRAST [CT] Urgent Exams 08/03/21 09:04 Completed Assessment/Plan (1) Leukopenia Status: Acute Qualifiers: Neutropenia type: unspecified Assessment & Plan: Entry [employer] Paralegal Dr Aguilar consulted by phone -continue present care /tx of pneumonia and monitor CBC. He will review patient's records. Code(s): D72.819 - DECREASED WHITE BLOOD CELL COUNT, UNSPECIFIED (2) Pneumonia Status: Acute Qualifiers: Laterality: unspecified laterality Lung location: unspecified part of lung Code(s): J18.9 - PNEUMONIA, UNSPECIFIED ORGANISM (3) Hx of melanoma excision Status: Resolved Assessment & Plan: remote. Code(s): Z98.890 - OTHER SPECIFIED POSTPROCEDURAL STATES; Z85.820 - PERSONAL HISTORY OF MALIGNANT MELANOMA OF SKIN
[2021-08-05] MEDS ORDERED: Coreg 3.125 MG PO PRN (00:03)
[2021-08-05 05:19] LABS: Hematocrit 36.4 % (42-50); Hemoglobin 11.5 g/dL (12.5-18.0); Mean Cell Volume 81.8 fL (78-100); Mean Corpuscular Hemoglobin 25.8 pg (26-32); Mean Corpuscular Hgb Concent. 31.6 g/dL (32-36); Mean Platelet Volume 12.2 fL (7.5-11.0); Platelet Count 63 x10^3/uL (150-450); Red Blood Count 4.45 x10^6/uL (4.1-5.6); Red Cell Distribution Width 13.8 % (11.5-14.0)
[2021-08-05 05:45] LABS: White Blood Count 1.7 x10^3/uL (4.0-10.5)
[2021-08-05 06:04] LABS: ALBUMIN 2.9 g/dL (3.5-5.0); ALKALINE PHOSPHATASE 153 U/L (38-126); ANION GAP 11.5 MEQ/L (5-15); BLOOD UREA NITROGEN 20 mg/dL (9-20); CHLORIDE 103 mmol/L (98-107); Calcium 8.7 mg/dL (8.4-10.2); Carbon Dioxide 27 mmol/L (22-30); EST GLOMERULAR FILTRATION RATE > 60.0 ML/MIN; Glucose 100 mg/dL (74-106); Potassium 3.6 mmol/L (3.5-5.1); SGOT/AST 108 U/L (17-59); SGPT/ALT 50 U/L (0-50); SODIUM 138 mmol/L (137-145); Total Protein 5.7 g/dL (6.3-8.2)
[2021-08-05 06:06] LABS: Lymphocytes 22 % (24-44); Monocyte 2 % (0.0-12.0); Total Cells Counted 100
[2021-08-05 06:07] LABS: Platelet Estimate NORMAL (NORMAL)
[2021-08-05] MEDS: Protonix 40MG Tablet PO SCH (09:49)
[2021-08-05] MEDS: ENOXAPARIN SODIUM SQ SCH (09:49)
[2021-08-05] MEDS: Coreg 3.125 MG PO SCH ×2 (09:49→21:09)
[2021-08-05] MEDS: Proscar 5 MG PO SCH (09:49)
[2021-08-05] MEDS: Zestril 20 MG PO SCH ×2 (09:49→21:09)
--- NOTE | 2021-08-05 10:26 | PCM.NOTE ---
Date and Time: 08/05/21 1017 Subjective Assessment: Pt had fever to 103.1 last night. He denies any pain. Just started to have a little cough last night, which is non productive. Had some bp up to 194/85 (last bp was 148/82). - Review of Systems Constitutional: Fever Respiratory: Cough Objective Exam General Appearance: no apparent distress, alert Neurologic Exam: oriented x 3, cooperative Skin Exam: normal color, warm, dry, No rash Eye Exam: eyes nml inspection Ears, Nose, Throat Exam: moist mucous membranes Neck Exam: normal inspection Respiratory Exam: normal breath sounds, lungs clear, No crackles/rales, No rhonchi, No wheezing Cardiovascular Exam: regular rate/rhythm, normal heart sounds, No murmur Extremity Exam: No pedal edema, No swelling OBJECTIVE DATA Vital Signs: Vital Signs - 24 hr Temp Pulse Resp BP Pulse Ox 08/05/21 10:01 90 L 08/05/21 09:58 75 16 88 L 08/05/21 07:28 97.7 F 84 22 152/68 89 L 08/05/21 04:00 98.9 F 95 H 18 148/82 92 L 08/04/21 23:00 96.6 F 80 18 159/83 92 L 08/04/21 19:00 98.4 F 79 17 194/85 90 L 08/04/21 18:59 79 17 90 L 08/04/21 14:30 100.9 F 08/04/21 12:00 103.1 F 89 18 185/88 95 Pain Assessment - Last Documented Pain Intensity 0 Pain Scale Used 0-10 Pain Scale Intake and Output: Intake & Output 08/02/21 08/03/21 08/04/21 08/05/21 11:59 11:59 11:59 11:59 Intake Total 1388 2650 4449 760 Output Total 600 1700 1125 1250 Balance 784 241 9921 -490 Weight 97.6 kg 97.3 kg 98.4 kg Lab Results: Lab Results-Last 24 Hours 08/05/21 08/05/21 Range/Units 04:20 04:20 WBC 1.7 L* (4.0-10.5) x10^3/uL RBC 4.45 (4.1-5.6) x10^6/uL Hgb 11.5 L (12.5-18.0) g/dL Hct 36.4 L (42-50) % MCV 81.8 (78-100) fL MCH 25.8 L (26-32) pg MCHC 31.6 L (32-36) g/dL RDW 13.8 (11.5-14.0) % Plt Count 63 L (150-450) x10^3/uL MPV 12.2 H (7.5-11.0) fL Segmented Neutrophils 76 H (36.-66.) % Lymphocytes (Manual) 22 L (24-44) % Monocytes (Manual) 2 (0.0-12.0) % Platelet Estimate NORMAL (NORMAL) RBC Morphology NORMAL Sodium 138 (137-145) mmol/L Potassium 3.6 (3.5-5.1) mmol/L Chloride 103 (98-107) mmol/L Carbon Dioxide 27 (22-30) mmol/L Anion Gap 11.5 (5-15) MEQ/L BUN 20 (9-20) mg/dL Creatinine 1.00 (0.66-1.25) mg/dL Estimated GFR > 60.0 ML/MIN Glucose 100 (74-106) mg/dL Calcium 8.7 (8.4-10.2) mg/dL Total Bilirubin 1.20 (0.2-1.3) mg/dL AST 108 H (17-59) U/L ALT 50 (0-50) U/L Alkaline Phosphatase 153 H (38-126) U/L Serum Total Protein 5.7 L (6.3-8.2) g/dL Albumin 2.9 L (3.5-5.0) g/dL Assessment/Plan (1) Pneumonia Current Visit: Yes Status: Acute Qualifiers: Laterality: unspecified laterality Lung location: unspecified part of lung Assessment & Plan: Treating for pna - not obvious on CT, but questionable on CXR. change abx from rocephin/zithromax to levaquin as he is still febrile once or twice daily. Code(s): J18.9 - PNEUMONIA, UNSPECIFIED ORGANISM (2) Leukopenia Current Visit: Yes Status: Acute Assessment & Plan: put pt on reverse isolation. Will discuss with his heme/onc, Dr. Aguilar. Code(s): D72.819 - DECREASED WHITE BLOOD CELL COUNT, UNSPECIFIED (3) Thrombocytopenia Current Visit: Yes Status: Acute (4) Hypertension Current Visit: Yes Status: Chronic Qualifiers: Hypertension type: primary hypertension Qualified Code(s): I10 - Essential (primary) hypertension Assessment & Plan: added hydralazine prn Code(s): I10 - ESSENTIAL (PRIMARY) HYPERTENSION
[2021-08-05] MEDS ORDERED: APRESOLINE 20 MG/ML INJ IV PRN (10:35)
[2021-08-05] MEDS: Acidophilus TABLET PO SCH ×3 (11:28→21:09)
[2021-08-05] MEDS: Levofloxacin 500MG/100ML D5W 500 MG/100 ML BAG IV SCH (11:28)
--- NOTE | 2021-08-05 12:01 | XRAY ---
Indication: Fever, pneumonia, and leukopenia. Comparison: August 01, 2021. PA/lateral chest again hyperinflated with a few right lung and right hilar calcified granulomas. No focal infiltrate, consolidation, or large effusion. Heart not enlarged. Bony thorax intact again with mild osteopenia, degenerative changes, and left axilla surgical clips. Impression: Nonacute chest with chronic features.
[2021-08-05] MEDS: Xalatan OP SCH (21:09)
[2021-08-06] MEDS: Coreg 3.125 MG PO SCH ×2 (09:12→21:51)
[2021-08-06] MEDS: Proscar 5 MG PO SCH (09:12)
[2021-08-06] MEDS: Protonix 40MG Tablet PO SCH (09:12)
[2021-08-06] MEDS: Levofloxacin 500MG/100ML D5W 500 MG/100 ML BAG IV SCH (09:12)
[2021-08-06] MEDS: Zestril 20 MG PO SCH ×2 (09:12→21:51)
[2021-08-06] MEDS: Acidophilus TABLET PO SCH ×3 (09:12→21:51)
[2021-08-06] MEDS: ENOXAPARIN SODIUM SQ SCH (09:12)
--- NOTE | 2021-08-06 09:46 | PCM.NOTE ---
Date and Time: 08/06/21 0943 Subjective Assessment: patient has been afebrile for the last 48 hours, he is feeling some better, cough is minimal, no pain anywhere but feels emotionally drained Objective Exam General Appearance: no apparent distress Neurologic Exam: alert, oriented x 3 Skin Exam: normal color, warm, dry Respiratory Exam: crackles/rales (left) Cardiovascular Exam: regular rate/rhythm, normal heart sounds Gastrointestinal/Abdomen Exam: soft, No tenderness, No mass Extremity Exam: normal inspection, normal range of motion OBJECTIVE DATA Vital Signs: Vital Signs - 24 hr Temp Pulse Resp BP Pulse Ox 08/06/21 08:00 97.1 F 74 22 165/77 94 L 08/06/21 07:58 76 18 91 L 08/06/21 04:08 97.2 F 75 19 157/70 95 08/05/21 23:29 97.0 F 88 20 160/70 96 08/05/21 19:58 97.9 F 88 20 184/82 96 08/05/21 19:19 80 18 90 L 08/05/21 16:00 97.9 F 60 20 151/77 94 L 08/05/21 12:00 98.6 F 76 20 164/76 95 08/05/21 10:01 90 L 08/05/21 09:58 75 16 88 L Pain Assessment - Last Documented Pain Intensity 0 Pain Scale Used 0-10 Pain Scale Intake and Output: Intake & Output 08/03/21 08/04/21 08/05/21 08/06/21 11:59 11:59 11:59 11:59 Intake Total 2650 4449 760 400 Output Total 1700 1125 1250 1550 Balance 950 3324 -490 -1150 Weight 97.3 kg 98.4 kg Lab Results: Lab Results-Last 24 Hours 08/03/21 Range/Units 05:20 WBC 2.0 L (4.0-10.5) x10^3/uL RBC 4.25 (4.1-5.6) x10^6/uL Hgb 11.3 L (12.5-18.0) g/dL Hct 35.8 L (42-50) % MCV 84.2 (78-100) fL MCH 26.6 (26-32) pg MCHC 31.6 L (32-36) g/dL RDW 14.2 H (11.5-14.0) % Plt Count 71 L (150-450) x10^3/uL MPV 10.7 (7.5-11.0) fL Segmented Neutrophils 81 H (36.-66.) % Band Neutrophils 10 H (0.0-2.0) % Lymphocytes (Manual) 5 L (24-44) % Monocytes (Manual) 4 (0.0-12.0) % Toxic Granulation 1+ Platelet Estimate DECREASED (NORMAL) RBC Morphology ABNORMAL Anisocytosis RARE Smear Path Review Radiology Exams: Radiology Procedures Category Date Time Status CHEST 2 VIEWS (PA AND LAT) Routine Exams 08/05/21 11:52 Completed Assessment/Plan (1) Pneumonia Current Visit: Yes Status: Acute Qualifiers: Laterality: unspecified laterality Lung location: unspecified part of lung Assessment & Plan: on levaquin, blood culture with gram positive kaleb sent to reference lab. will attempt to wean oxygen and repeat cbc tomorrow Code(s): J18.9 - PNEUMONIA, UNSPECIFIED ORGANISM (2) Hypertension Current Visit: Yes Status: Chronic Qualifiers: Hypertension type: primary hypertension Qualified Code(s): I10 - Essential (primary) hypertension Code(s): I10 - ESSENTIAL (PRIMARY) HYPERTENSION
[2021-08-06] MEDS: TYLENOL EXTRA STRENGTH 500 MG PO PRN (15:03)
[2021-08-06] MEDS: Xalatan OP SCH (21:55)
[2021-08-07] MEDS: TYLENOL EXTRA STRENGTH 500 MG PO PRN (00:25)
[2021-08-07 04:46] LABS: Absolute Neutrophil Ct (ANC) 2.16 x10^3/uL (1.4-6.9); Basophil (Absolute #) 0.02 x10^3/uL (0-0.4); Eosinophil % 1.2 % (0.00-5.0); Eosinophil (Absolute #) 0.03 x10^3/uL (0-0.5); Hematocrit 35.5 % (42-50); Hemoglobin 11.6 g/dL (12.5-18.0); Lymphocyte (Absolute #) 0.16 x10^3/uL (1.0-4.6); Lymphocytes % 6.2 % (24.0-44.0); Mean Cell Volume 80.7 fL (78-100); Mean Corpuscular Hemoglobin 26.4 pg (26-32); Mean Corpuscular Hgb Concent. 32.7 g/dL (32-36); Mean Platelet Volume 11.8 fL (7.5-11.0); Monocyte (Absolute #) 0.21 x10^3/uL (0.0-1.3); Monocytes % 8.1 % (0.0-12.0); Neutrophil % 82.9 % (36.0-66.0); Platelet Count 67 x10^3/uL (150-450); Red Cell Distribution Width 13.8 % (11.5-14.0); White Blood Count 2.6 x10^3/uL (4.0-10.5)
[2021-08-07 05:14] LABS: ALBUMIN 2.7 g/dL (3.5-5.0); ALKALINE PHOSPHATASE 158 U/L (38-126); ANION GAP 11.2 MEQ/L (5-15); BLOOD UREA NITROGEN 24 mg/dL (9-20); CHLORIDE 101 mmol/L (98-107); Calcium 8.8 mg/dL (8.4-10.2); Carbon Dioxide 28 mmol/L (22-30); Creatinine 1 1.05 mg/dL (0.66-1.25); EST GLOMERULAR FILTRATION RATE > 60.0 ML/MIN; Glucose 107 mg/dL (74-106); MAGNESIUM 1.8 mg/dL (1.6-2.3); Potassium 3.2 mmol/L (3.5-5.1); SGOT/AST 88 U/L (17-59); SGPT/ALT 42 U/L (0-50); SODIUM 137 mmol/L (137-145); Total Protein 5.4 g/dL (6.3-8.2)
[2021-08-07 05:34] LABS: Slide Review 1 YES
[2021-08-07 07:26] VITALS: BP 123/60; O2SAT 92
[2021-08-07 07:42] VITALS: PULSE 72
--- NOTE | 2021-08-07 08:41 | PCM.DS ---
Discharge Summary Date of Admission: 08/02/21 10:50 Admitting Physician: MELINDA JAMIL Primary Care Provider: SERGE COWART Allergies Allergies No Known Drug Allergies Allergy (Verified 08/01/21 18:16) Hospital Summary - Hospital Course Hospital Course: patient admitted with cough, fever and requiring oxygen. blood culture with gram positive rods and likely contaminant. he is afebrile and feeling better, still requiring 2L oxygen - Vitals & Intake/Output Vital Signs: Vital Signs Temperature 98.4 F 08/07/21 07:25 Pulse Rate 72 08/07/21 07:41 Respiratory Rate 16 08/07/21 07:41 Blood Pressure 123/60 08/07/21 07:25 O2 Sat by Pulse Oximetry 92 L 08/07/21 07:41 Intake & Output: Intake & Output 08/04/21 08/05/21 08/06/21 08/07/21 11:59 11:59 11:59 11:59 Intake Total 4449 519 053 3142 Output Total 1125 1250 1550 200 Balance 0951 -490 -580 1000 Weight 98.4 kg 98.5 kg 97.5 kg - Lab Result Diagrams: 08/07/21 04:20 08/07/21 04:20 Lab Results-Last 24 Hrs: Lab Results-Last 24 Hours 08/07/21 08/07/21 Range/Units 04:20 04:20 WBC 2.6 L (4.0-10.5) x10^3/uL RBC 4.40 (4.1-5.6) x10^6/uL Hgb 11.6 L (12.5-18.0) g/dL Hct 35.5 L (42-50) % MCV 80.7 (78-100) fL MCH 26.4 (26-32) pg MCHC 32.7 (32-36) g/dL RDW 13.8 (11.5-14.0) % Plt Count 67 L (150-450) x10^3/uL MPV 11.8 H (7.5-11.0) fL Gran % 82.9 H (36.0-66.0) % Immature Gran % (Auto) 0.8 H (0.00-0.4) % Nucleat RBC Rel Count 0.0 (0.00-0.1) % Eos # (Auto) 0.03 (0-0.5) x10^3/uL Immature Gran # (Auto) 0.02 (0.00-0.03) x10^3u/L Absolute Lymphs (auto) 0.16 L (1.0-4.6) x10^3/uL Absolute Monos (auto) 0.21 (0.0-1.3) x10^3/uL Absolute Nucleated RBC 0.00 (0.00-0.01) x10^3u/L Lymphocytes % 6.2 L (24.0-44.0) % Monocytes % 8.1 (0.0-12.0) % Eosinophils % 1.2 (0.00-5.0) % Basophils % 0.8 (0.0-0.4) % Absolute Granulocytes 2.16 (1.4-6.9) x10^3/uL Basophils # 0.02 (0-0.4) x10^3/uL Sodium 137 (137-145) mmol/L Potassium 3.2 L (3.5-5.1) mmol/L Chloride 101 (98-107) mmol/L Carbon Dioxide 28 (22-30) mmol/L Anion Gap 11.2 (5-15) MEQ/L BUN 24 H (9-20) mg/dL Creatinine 1.05 (0.66-1.25) mg/dL Estimated GFR > 60.0 ML/MIN Glucose 107 H (74-106) mg/dL Calcium 8.8 (8.4-10.2) mg/dL Magnesium 1.8 (1.6-2.3) mg/dL Total Bilirubin 1.00 (0.2-1.3) mg/dL AST 88 H (17-59) U/L ALT 42 (0-50) U/L Alkaline Phosphatase 158 H (38-126) U/L Serum Total Protein 5.4 L (6.3-8.2) g/dL Albumin 2.7 L (3.5-5.0) g/dL Slides for Path Review YES Micro Results-Entire Visit: Microbiology 08/04/21 12:35 Blood Culture - Preliminary Blood NO GROWTH TO DATE 08/04/21 12:30 Blood Culture - Preliminary Blood NO GROWTH TO DATE 08/01/21 18:48 Blood Culture Gram Stain - Final Blood Not Reportable Blood Culture - Final NO GROWTH 08/01/21 18:45 Blood Culture Gram Stain - Final Blood Blood Culture - Preliminary ADDITIONAL TESTING IS REQUIRED TO OBTAIN ID AND SENSITIVITY. SPECIMEN HAS BEEN SENT TO REFERENCE LAB, WITH FINAL RESULT EXPECTED WITHIN 96 HOURS. - Radiology Exams Ordered Rad Exams-Entire Visit: Radiology Procedures Category Date Time Status CHEST 2 VIEWS (PA AND LAT) Routine Exams 08/05/21 11:52 Completed - Procedures and Test Procedures and Tests throughout Hospitalization: Therapy Orders & Screens 08/01/21 19:46 Oxygen Nasal Cannula 2 lpm Comment: 08/02/21 02:56 Respiratory Therapy Assessment DAILY Comment: Diagnosis: Pneumonia 08/06/21 11:45 RT Miscellaneous Order ROUTINE Comment: Physician Instructions: Reason For Exam: WEAN OFF OXYGEN Diagnosis: PNEUMONIA, HTN Discharge Exam General Appearance: no apparent distress, alert Respiratory Exam: lungs clear, diminished breath sounds, No respiratory distress, No crackles/rales, No rhonchi Cardiovascular Exam: regular rate/rhythm, normal heart sounds Gastrointestinal/Abdomen Exam: soft, No tenderness, No mass Extremity Exam: normal inspection, normal range of motion Skin Exam: normal color, warm, dry Final Diagnosis/Problem List - Final Discharge Diagnosis/Problem (1) Pneumonia Current Visit: Yes Status: Acute Assessment & Plan: home on levaquin Code(s): J18.9 - PNEUMONIA, UNSPECIFIED ORGANISM (2) Hypertension Current Visit: Yes Status: Chronic Code(s): I10 - ESSENTIAL (PRIMARY) HYPERTENSION (3) Acute respiratory failure with hypoxia Current Visit: Yes Status: Acute Assessment & Plan: will certify for home oxygen Code(s): J96.01 - ACUTE RESPIRATORY FAILURE WITH HYPOXIA (4) Leukopenia Current Visit: Yes Status: Acute Assessment & Plan: suspect unknown viral pathogen causative of pneumonia and pancytopenia, it is improving slowly. will f/u with his oncologist Dr Aguilar Code(s): D72.819 - DECREASED WHITE BLOOD CELL COUNT, UNSPECIFIED - Discharge Disposition: Home, Self-Care Condition: Stable Prescriptions: New Levofloxacin [Levofloxacin 500 MG Tablet] 500 mg PO DAILY #5 tablet Continue Lisinopril 10 mg [Zestril 10 MG] 20 mg PO BID Rosuvastatin Calcium 20 mg PO DAILY Finasteride 5 mg [Proscar 5 MG] 5 mg PO DAILY Omeprazole 40 mg PO DAILY Latanoprost/Pf [Latanoprost 0.005% Eye Drop] 1 drop OP HS Carvedilol 3.125 mg [Coreg 3.125 MG] 3.125 mg PO BID Follow up with: SERGE COWART, MATT [Primary Care Provider] - RAJINDER AGUILAR [CONSULTING PHYSICIAN] -
[2021-08-07] MEDS: Levofloxacin 500MG/100ML D5W 500 MG/100 ML BAG IV SCH (09:17)
[2021-08-07] MEDS: Zestril 20 MG PO SCH (09:18)
[2021-08-07] MEDS: Protonix 40MG Tablet PO SCH (09:18)
[2021-08-07] MEDS: Acidophilus TABLET PO SCH (09:18)
[2021-08-07] MEDS: ENOXAPARIN SODIUM SQ SCH (09:18)
[2021-08-07] MEDS: Proscar 5 MG PO SCH (09:19)
[2021-08-07] MEDS: Coreg 3.125 MG PO SCH (09:19)
== END 2021-08-07 11:00 | disposition home or self-care (01) | DRG 193 ==
LOC: ED 17:42 → MED SURG 20:11 → OBSVTOIN 08-02 10:50
PROVIDERS: ADMIT Family Medicine; ATTEND Family Medicine
DX: J18.9 Pneumonia, unspecified organism (principal); J96.01 Acute respiratory failure with hypoxia; I10 Essential (primary) hypertension; D72.819 Decreased white blood cell count, unspecified; R50.9 Fever, unspecified; E78.00 Pure hypercholesterolemia, unspecified; Z20.828 Contact with and (suspected) exposure to other viral communicable diseases; Z79.899 Other long term (current) drug therapy; Z85.46 Personal history of malignant neoplasm of prostate; Z85.820 Personal history of malignant melanoma of skin
CPT/HCPCS: 0241U; 36000; 36415; 70450; 71045; 71046; 71260; 80048; 80053; 81015; 83605; 83735; 84484; 85025; 85610; 86308; 87040; 87077; 93005; 94640; 94760; 96360; 99284; 99285; G0378; J0456; J0696; J1650; J1956; A9270-GY

== ENCOUNTER 2021-10-31 06:40 | Day surgery (SDC) | payer MEDICARE, OTHER ==
[~2021-10-31 06:40] MED LIST: XYLOCAINE 1% HCL 20 ML MDV ONE
[2021-10-31] MEDS ORDERED: Lactated Ringers 1,000 ML IV ONE (07:25)
[2021-10-31] MEDS ORDERED: CEFAZOLIN 2 GM-D5W BAG** 2 GM/50 ML ML IV ONE (07:25)
[2021-10-31] MEDS ORDERED: Lactated Ringers 1,000 ML IV SCH (07:30)
[2021-10-31] MEDS ORDERED: CEFAZOLIN 2 GM-D5W BAG** 2 GM/50 ML ML IV SCH (07:30)
[2021-10-31] MEDS ORDERED: Marcaine Mpf 0.5% Vial 30 Ml ONE (07:30)
[2021-10-31] MEDS ORDERED: Pepcid 20 MG PO ONE (08:48)
[2021-10-31] MEDS ORDERED: Reglan 10 MG/2 ML IV ONE (08:48)
[2021-10-31] MEDS ORDERED: Pepcid 20 MG VIAL IV ONE ×2 (08:49→08:51)
[2021-10-31] MEDS ORDERED: Decadron 4 MG INJ ONE (09:19)
[2021-10-31] MEDS ORDERED: Xylocaine-Mpf 2% 5 Ml Vial ONE (09:19)
[2021-10-31] MEDS ORDERED: Zofran 4 MG/2 ML VIAL ONE (09:19)
[2021-10-31] MEDS ORDERED: SUBLIMAZE 100 MCG/2 ML ONE (09:20)
[2021-10-31] MEDS ORDERED: DIPRIVAN 200 MG/20 ML IV ONE (09:20)
[2021-10-31] MEDS ORDERED: Ephedrine Sulfate 50 MG/ML ONE (09:49)
--- NOTE | 2021-10-31 10:50 | XRAY ---
Indication: Right 2nd toe hammertoe repair. Intraoperative fluoroscopy provided for 13 seconds. 5 digital spot images submitted for interpretation ultimately demonstrates single screw traversing entire 2nd toe. Correlate with intraoperative findings/report.
[2021-10-31 11:31] VITALS: BP 140/88; PULSE 66; O2SAT 93
--- NOTE | 2021-10-31 13:38 | XRAY ---
13 seconds fluoroscopy time in surgery for right 2nd toe hammertoe repair.
--- NOTE | 2021-11-03 14:29 | OP ---
SURGERY DATE/TIME: 10/31/2021 0925 PREOPERATIVE DIAGNOSES: 1) Tophaceous gout. 2) Pain right foot. 3) Hammer toe. POSTOPERATIVE DIAGNOSES: 1) Tophaceous gout. 2) Pain right foot. 3) Hammer toe. PROCEDURE: Hammer toe correction with removal of tophaceous gout. SURGEON: Amaury Cpoe DPM. NEW CAR INSPECTOR: None. ANESTHESIA: General with a preoperative local block. See injectables for details. ESTIMATED BLOOD LOSS: Less than 2 cc. MATERIALS: 2.5 mm x 30 mm variable compression screw, 4.0 Monocryl and 3-0 Nylon. INJECTABLES: 20 cc of a 1:1 mixture of 1% lidocaine plain and 0.5% bupivacaine plain injected in metatarsal block-type fashion to second metatarsal of the right foot. INDICATION FOR SURGERY: Robert is a very pleasant 76-year-old male who has been seen multiple times in my office for gout. Primarily the patient does have gout to the bilateral first metaphalangeal joints which cause a significant amount of pain. 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 On the initial appointment, most of the pain he was experiencing was at the first metaphalangeal joint. However soon thereafter, the patient once again developed a sinus tract and was able to express significant amount of tophi. There was an infection present and this was treated with antibiotics and medication that he had just started with his recent diagnosis of gout which his primary care provider. At this time he had multiple sinus tract to the toe as a result of the tophaceous gout and would like to proceed with management. He has failed conservative therapy for this issue and would like to proceed with cleaning out the distal interphalangeal joint and the proximal interphalangeal joint in attempt at salvaging the toe. The patient understands all risks, benefits and complications of the surgical intervention. No guarantees were provided as to the outcome and the patient was advised that no procedure will 100% guarantee the elimination of the tophaceous gout. The patient understands this risk and wishes to proceed. DESCRIPTION OF PROCEDURE AND FINDINGS: The patient was brought into the OR and placed on the OR table in the supine position. At this time, adequate anesthesia was administered and a well-padded ankle tourniquet was applied to the patient's right ankle. The right foot was prepped and draped in the typical sterile fashion. At this time Esmarch was utilized to exsanguinate the leg and the tourniquet inflated to 250 mm of Mercury. At this time a linear incision was made over the dorsal aspect of the second digit carrying dissection down to the level of the proximal and distal interphalangeal joints where a significant amount of tophaceous gout was identified. A combination of curettes, rongeurs, and sagittal saws were utilized to resect out the joint, scrap down soft tissue with the tophaceous gout and correct the position of the toe. Copious amounts of sterile saline were utilized to flush the site until there was no significant appreciable tophaceous gout left. At this time a K-wire was introduced into the distal tip of the distal interphalangeal joint and then retrograded down the middle phalanx as well as the proximal phalanx this was checked under fluoroscopic guidance and then a 30 mm x 2.5 mm VPC screw was introduced from the distal tip of the toe into the proximal phalanx. Following this copious amounts of sterile saline were once again used to flush the surgical site. 4-0 Monocryl was used to coapt the skin edges and a 3-0 Nylon was utilized to coapt the skin edges in horizontal mattress-type fashion. Following this the tourniquet was let down. 25 total tourniquet minutes were reported. A dressing consisting of Betadine, Adaptic, 4x4, Kerlix and [place] were applied to the right foot. The patient was then reversed from anesthesia and returned to the postoperative anesthesia care unit with vital signs stable and vascular status intact. The patient handled the anesthesia as well as the procedure without significant complication. The patient's orders as indicated in the patient's discharge chart.
== END 2021-10-31 11:45 | disposition home or self-care (01) ==
LOC: SDC 06:40
PROVIDERS: ATTEND Podiatrist Foot & Ankle Surgery
DX: M20.41 Other hammer toe(s) (acquired), right foot (principal); M1A.9XX1 Chronic gout, unspecified, with tophus (tophi); M79.671 Pain in right foot
CPT/HCPCS: 73630; 76000; 99100; J0690; J1100; J2405; J2704; J3010

== ENCOUNTER 2022-11-19 05:24 | Observation (INO) | payer MEDICARE, OTHER ==
--- NOTE | 2022-11-19 06:12 | ERPHSYRPT ---
- History of Present Illness Time Seen by Provider: 11/19/22 06:08 Source: patient Exam Limitations: no limitations Patient Subjective Stated Complaint: pt states that he was in the bathroom when he eased himself down. pt states he has been around people with covid at work Triage Nursing Assessment: pt came into the er via ambulance; pt transferred self to cot; c/o fall; pt denies LOC; pt denies hitting head; c/o cough; moist hacking cough present; clear lung sounds in all lobes; hypoxia; pt was 88% on room air at time of arrival; pt was put on 4 L via NC; no respiratory distress present; c/o chills; afebrile; active bowel sounds in all quads; mucus membranes pink and moist; c/o diarrhea; denies N/V Physician History: Patient is a 77-year-old male presents to our ED via EMS for evaluation of syncope. 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 Patient himself has been experiencing a cough and diarrhea. Patient went to the bathroom this morning and had a bout of diarrhea. He got up and became faint. Patient laid himself onto the ground. No trauma. Patient's found him on the ground. They called 911 and patient is here for evaluation and treatment. Patient states he tested negative for COVID. Patient hypoxic in our ED at 80%. We applied 4 L nasal cannula. Patient symptoms are mild to moderate in intensity. No specific worsening improving factors. No associated chest pain. No BHT or LOC. No neck pain. Cervical spine cleared clinically. Patient voices no other complaints or concerns at this time. Portions of this note were created with voice recognition technology. There may be grammatical, spelling, punctuation or sound alike errors Timing/Duration: today Severity: moderate Modifying Factors: Improves With: nothing Associated Symptoms: denies symptoms Allergies/Adverse Reactions: No Known Drug Allergies Allergy (Verified 11/19/22 05:30) Home Medications: Finasteride 5 mg [Proscar 5 MG] 5 mg PO DAILY 12/02/20 [History] Omeprazole 40 mg PO DAILY 12/02/20 [History] Allopurinol 300 mg [Zyloprim 300 mg] 600 mg PO DAILY 11/19/22 [History] Benzonatate 200 mg PO TID PRN 11/19/22 [History] Carvedilol 12.5 mg [Coreg 12.5 mg] 12.5 mg PO BID 11/19/22 [History] Rosuvastatin Calcium 40 mg PO DAILY 11/19/22 [History] Spironolact/Hydrochlorothiazid [Spironolactone-Hctz 25-25 Tab] 1 each PO DAILY 11/19/22 [History] Timolol Maleate 0.25% Eye [Timolol 0.25% Opth Claudette 5 ML] 1 drop OP DAILY 11/19/22 [History] lisinopriL [Lisinopril] 40 mg PO DAILY 11/19/22 [History] Hx Tetanus, Diphtheria Vaccination/Date Given: No Hx Influenza Vaccination/Date Given: No Hx Pneumococcal Vaccination/Date Given: No Travel Risk - International Travel Have you traveled outside of the country in past 3 weeks: No - Coronavirus Screening Are you exhibiting any of the following symptoms?: Yes Symptoms: Cough: New Onset, Vomiting/Diarrhea Close contact with a COVID-19 positive Pt in past 14-21 Days: Yes - Vaccine Status Have you recieved a Covid-19 vaccination: Yes 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 - Vaccination Dates Date of 2cond Vaccination (if applicable): 07/04/20 - Review of Systems Constitutional: No Symptoms, No Fever, No Chills Eyes: No Symptoms Ears, Nose, & Throat: No Symptoms Respiratory: No Symptoms, No Cough, No Dyspnea Cardiac: No Symptoms, No Chest Pain, No Edema, No Syncope Abdominal/Gastrointestinal: No Symptoms, No Abdominal Pain, No Nausea, No Vomiting, No Diarrhea Genitourinary Symptoms: No Symptoms, No Dysuria Musculoskeletal: No Symptoms, No Back Pain, No Neck Pain Skin: No Symptoms, No Rash Neurological: No Symptoms, No Dizziness, No Focal Weakness, No Sensory Changes Psychological: No Symptoms Endocrine: No Symptoms Hematologic/Lymphatic: No Symptoms Immunological/Allergic: No Symptoms All Other Systems: Reviewed and Negative - Past Medical History Pertinent Past Medical History: Yes Neurological History: Migraines ENT History: Glaucoma Cardiac History: High Cholesterol, Hypertension Respiratory History: Pneumonia Endocrine Medical History: No Pertinent History Musculoskeletal History: No Pertinent History GI Medical History: GERD History: No Pertinent History Psycho-Social History: Anxiety Male Reproductive Disorders: Prostate Cancer - Past Surgical History Past Surgical History: Yes Neuro Surgical History: No Pertinent History Cardiac: No Pertinent History Respiratory: No Pertinent History Gastrointestinal: Appendectomy Genitourinary: No Pertinent History Musculoskeletal: No Pertinent History Male Surgical History: Other Other Surgical History: prostate biopsy,melanoma removed from back. - Social History Smoking Status: Former smoker Exposure to second hand smoke: No Drug Use: none Patient Lives Alone: No - Nursing Vital Signs Nursing Vital Signs: Initial Vital Signs Temperature 97.1 F 11/19/22 05:29 Pulse Rate 74 11/19/22 05:29 Respiratory Rate 18 11/19/22 05:29 Blood Pressure 114/50 11/19/22 05:29 O2 Sat by Pulse Oximetry 88 L 11/19/22 05:29 Pain Scale Pain Intensity 0 - Physical Exam General Appearance: no apparent distress, alert Eye Exam: PERRL/EOMI, eyes nml inspection Ears, Nose, Throat Exam: normal ENT inspection, TMs normal, pharynx normal, moist mucous membranes Neck Exam: normal inspection, non-tender, supple, full range of motion Respiratory Exam: normal breath sounds, lungs clear, airway intact, No respiratory distress Cardiovascular Exam: regular rate/rhythm, normal heart sounds, normal peripheral pulses Gastrointestinal/Abdomen Exam: soft, normal bowel sounds, No tenderness, No mass Back Exam: normal inspection, normal range of motion, No CVA tenderness, No vertebral tenderness Extremity Exam: normal inspection, normal range of motion, pelvis stable Neurologic Exam: alert, oriented x 3, cooperative, normal mood/affect, nml ce rebellar function, nml station & gait, sensation nml, No motor deficits Skin Exam: normal color, warm, dry, No rash Lymphatic Exam: No adenopathy SpO2 Interpretation: normal SpO2: 88 O2 Delivery: Room Air - Course Nursing assessment & vital signs reviewed: Yes EKG Interpreted by Me: RATE (73), Sinus Rhythm, NORMAL AXIS, NORMAL INTERVALS Ordered Tests: Active Orders 24 hr Category Date Time Status Information Technology Intern STAT Care 11/19/22 06:05 Active EKG-ER Only STAT Care 11/19/22 06:04 Active IV Insertion STAT Care 11/19/22 06:04 Active Pulse Oximetry (ED) STAT Care 11/19/22 06:04 Active CHEST 1 VIEW (PORTABLE) Stat Exams 11/19/22 06:05 Taken BLOOD CULTURE Stat Lab 11/19/22 06:31 Ordered CBC W DIFF Stat Lab 11/19/22 06:31 Completed CMP Stat Lab 11/19/22 06:31 Completed Lactic Acid Stat Lab 11/19/22 06:21 Ordered TROPONIN Q4H Lab 11/19/22 06:31 Received TROPONIN Q4H Lab 11/19/22 10:15 Ordered TROPONIN Q4H Lab 11/19/22 14:15 Ordered UA W/RFX UR CULTURE Stat Lab 11/19/22 06:21 Ordered Lab/Rad Data: Laboratory Result Diagrams 11/19/22 06:31 11/19/22 06:31 Laboratory Results 11/19/22 11/19/22 Range/Units 06:31 06:31 WBC 9.9 (4.0-10.5) x10^3/uL RBC 4.96 (4.1-5.6) x10^6/uL Hgb 13.4 (12.5-18.0) g/dL Hct 41.7 L (42-50) % MCV 84.1 (78-100) fL MCH 27.0 (26-32) pg MCHC 32.1 (32-36) g/dL RDW 15.0 H (11.5-14.0) % Plt Count 124 L (150-450) x10^3/uL MPV 9.9 (7.5-11.0) fL Gran % 76.8 H (36.0-66.0) % Immature Gran % (Auto) 0.6 H (0.00-0.4) % Nucleat RBC Rel Count 0.0 (0.00-0.1) % Eos # (Auto) 0.04 (0-0.5) x10^3/uL Immature Gran # (Auto) 0.06 H (0.00-0.03) x10^3u/L Absolute Lymphs (auto) 0.97 L (1.0-4.6) x10^3/uL Absolute Monos (auto) 1.18 (0.0-1.3) x10^3/uL Absolute Nucleated RBC 0.00 (0.00-0.01) x10^3u/L Lymphocytes % 9.8 L (24.0-44.0) % Monocytes % 11.9 (0.0-12.0) % Eosinophils % 0.4 (0.00-5.0) % Basophils % 0.5 (0.0-0.4) % Absolute Granulocytes 7.64 H (1.4-6.9) x10^3/uL Basophils # 0.05 (0-0.4) x10^3/uL Sodium 138 (137-145) mmol/L Potassium 4.1 (3.5-5.1) mmol/L Chloride 103 (98-107) mmol/L Carbon Dioxide 22 (22-30) mmol/L Anion Gap 17.4 H (5-15) MEQ/L BUN 32 H (9-20) mg/dL Creatinine 2.06 H (0.66-1.25) mg/dL Estimated GFR 33.4 ML/MIN Glucose 123 H (74-106) mg/dL Calcium 8.8 (8.4-10.2) mg/dL Total Bilirubin 0.50 (0.2-1.3) mg/dL AST 30 (17-59) U/L ALT 20 (0-50) U/L Alkaline Phosphatase 61 (38-126) U/L Serum Total Protein 7.1 (6.3-8.2) g/dL Albumin 4.2 (3.5-5.0) g/dL - Progress Progress: improved Progress Note: Patient 77-year-old male presents to our ED for evaluation of diarrhea COVID exposure cough syncope. Preliminary work-up reveals elevated creatinine likely secondary to dehydration due to diarrhea. Patient will require rehydration therapy likely admission. However imaging study and the remainder of the labs are pending. Patient endorsed to incoming physician will make final disposition. I am recommending we admit patient for further evaluation and treatment of dehydration elevated creatinine at this point. Incoming physician will make the ultimate disposition decision as long as patient approved. Portions of this note were created with voice recognition technology. There may be grammatical, spelling, punctuation or sound alike errors Complexity of problem addressed is moderate acute complicated No critical care time Complex of data reviewed and analyzed is extensive. Test ordered. Test reviewed. Clinical correlation made between test results and history and physic al examination. Case and plan of care will be discussed with accepting physician. Risk of complication and a risk morbidity/mortality of patient management is high. It is my opinion that patient will require hospitalization for further evaluation and treatment of acute renal injury and potentially other findings that are pending Vitals have been stable during her stay in our ED. Time spent to endorse patient is approximately 10 to 15 minutes. Plan of care established for shared decision making. Portions of this note were created with voice recognition technology. There may be grammatical, spelling, punctuation or sound alike errors 11/19/22 06:[address] Other Will see patient in: hospital (observation) Counseled pt/family regarding: lab results, diagnosis, rad results - Departure Departure Disposition: Observation Clinical Impression: Diarrhea, Acute renal injury, Dehydration, Vasovagal syncope, Cough, Hypoxic Condition: Stable Critical Care Time: No Referrals: SERGE COWART NP [Primary Care Provider] - Follow up/PCP as directed
[2022-11-19 06:32] LABS: Absolute Neutrophil Ct (ANC) 7.64 x10^3/uL (1.4-6.9); BASOPHIL % 0.5 % (0.0-0.4); Basophil (Absolute #) 0.05 x10^3/uL (0-0.4); Eosinophil % 0.4 % (0.00-5.0); Eosinophil (Absolute #) 0.04 x10^3/uL (0-0.5); Hematocrit 41.7 % (42-50); Hemoglobin 13.4 g/dL (12.5-18.0); IMMATURE GRAN # 0.06 x10^3u/L (0.00-0.03); IMMATURE GRAN % 0.6 % (0.00-0.4); Lymphocyte (Absolute #) 0.97 x10^3/uL (1.0-4.6); Lymphocytes % 9.8 % (24.0-44.0); Mean Cell Volume 84.1 fL (78-100); Mean Corpuscular Hgb Concent. 32.1 g/dL (32-36); Mean Platelet Volume 9.9 fL (7.5-11.0); Monocyte (Absolute #) 1.18 x10^3/uL (0.0-1.3); Monocytes % 11.9 % (0.0-12.0); Neutrophil % 76.8 % (36.0-66.0); Platelet Count 124 x10^3/uL (150-450); Red Blood Count 4.96 x10^6/uL (4.1-5.6); White Blood Count 9.9 x10^3/uL (4.0-10.5)
[2022-11-19 06:48] LABS: ALBUMIN 4.2 g/dL (3.5-5.0); ANION GAP 17.4 MEQ/L (5-15); BILIRUBIN,TOTAL 0.5 mg/dL (0.2-1.3); Calcium 8.8 mg/dL (8.4-10.2); Creatinine 1 2.06 mg/dL (0.66-1.25); EST GLOMERULAR FILTRATION RATE 33.4 ML/MIN; Potassium 4.1 mmol/L (3.5-5.1); Total Protein 7.1 g/dL (6.3-8.2)
[2022-11-19] MEDS ORDERED: DECADRON 10MG INJ. IV ONE (07:05)
[2022-11-19 07:09] LABS: INFLUENZA A NEGATIVE (NEGATIVE); INFLUENZA B NEGATIVE (NEGATIVE); RESPIRATORY SYNCTIAL VIRUS NEGATIVE (NEGATIVE)
[2022-11-19 07:12] LABS: SARS-CoV-2 Xpert Express POSITIVE (NEGATIVE)
[2022-11-19] MEDS ORDERED: DECADRON 10MG INJ. ONE (07:26)
[2022-11-19] MEDS ORDERED: Sodium Chloride 0.9% 1000 ML 1,000 ML IV STA (08:38)
[2022-11-19] MEDS ORDERED: Sodium Chloride 0.9% 1000 ML 1,000 ML ONE (08:48)
--- NOTE | 2022-11-19 08:50 | XRAY ---
Indication: Cough and short of breath. Comparison: August 05, 2021 Portable chest remains inflated again with scattered right lung and right hilar calcified granulomas. No focal infiltrate, consolidation, or large effusion. Heart not enlarged. Bony thorax intact again with osteopenia, mild degenerative changes, and left axilla surgical clips. Impression: Continued nonacute chest with chronic features.
--- NOTE | 2022-11-19 10:26 | PCM.HP ---
History of Present Illness - Chief Complaint Chief Complaint: COVID-19 DETECTED, ACUTE HYPOXIC RESPIRATORY FAILURE, DIARRHEA Date: 11/19/22 History of Present Illness: Mr.HALE HERRERA is a 77 year old male with pmhx of HTN, Gout, HLD, GERD, anxiety, glaucoma, and migraines that presented to ED 11/19/22 via EMS after a near- syncopal episode. Patient states that on Wednesday he developed a cough, arthralgias, and myalgias which were progressively worsening daily. He states he has not consumed much to eat or drink in two days. He reported for COVID testing yesterday which was negative. This morning the patient states he woke up with sweats/chills, extreme weakness, and had two episode of watery diarrhea and when he stood up after toileting he became faint. Patient was able to lay himself on the ground with no trauma, no LOC. Patient states that he is not short of breath , but upon arrival to the ED the patient was hypoxic with spo2 @ 80%. Patient was placed on 4L NC with spo2 now at 96%. Denies sob, cp, abdominal pain, RODRIGUEZ, dizziness, N/V. In ER, patient was hypoxic with spo2 @ 80% on arrival, normotensive, and afebrile. CXR unremarkable. EKG NS no ST elevations/deviation. Labs remarkable for Gap 17.4, and creat 2.06, baseline around 1.0. COVID positive. Lactate WNL, trops wnl. Patient was given decadron and IVF bolus. PCP: Shelia Code Status: Full code - Review of Systems Constitutional: Chills, Fatigue, Other (sweats) Eyes: No Symptoms Ears, Nose, & Throat: No Symptoms Respiratory: Cough (dry), Other (States he is not SOB, RA at baseline, 4L NC currently) Cardiac: No Symptoms Abdominal/Gastrointestinal: Diarrhea (watery diarrhea x 2 episode ) Genitourinary Symptoms: No Symptoms Musculoskeletal: Arthralgias, Myalgias Neurological: Dizziness Psychological: No Symptoms Endocrine: No Symptoms Hematologic/Lymphatic: No Symptoms Immunological/Allergic: No Symptoms Medications & Allergies Home Medications: Home Medication List Finasteride 5 mg [Proscar 5 MG] 5 mg PO DAILY 12/02/20 [History Confirmed 11/19/22] Omeprazole 40 mg PO DAILY 12/02/20 [History Confirmed 11/19/22] Allopurinol 300 mg [Zyloprim 300 mg] 600 mg PO DAILY 11/19/22 [History Confirmed 11/19/22] Benzonatate 200 mg PO TID PRN 11/19/22 [History Confirmed 11/19/22] Carvedilol 12.5 mg [Coreg 12.5 mg] 12.5 mg PO BID 11/19/22 [History Confirmed 11/19/22] Rosuvastatin Calcium 40 mg PO DAILY 11/19/22 [History Confirmed 11/19/22] Spironolact/Hydrochlorothiazid [Spironolactone-Hctz 25-25 Tab] 1 each PO DAILY 11/19/22 [History Confirmed 11/19/22] Timolol Maleate 0.25% Eye [Timolol 0.25% Opth Claudette 5 ML] 1 drop OP DAILY 11/19/22 [History Confirmed 11/19/22] lisinopriL [Lisinopril] 40 mg PO DAILY 11/19/22 [History Confirmed 11/19/22] Allergies/Adverse Reactions: Allergies Allergy/AdvReac Type Severity Reaction Status Date / Time No Known Drug Allergies Allergy Verified 11/19/22 05:30 - Past Medical History Past Medical History: Yes Neurological History: Migraines ENT History: Glaucoma Cardiac History: High Cholesterol, Hypertension Respiratory History: Pneumonia Endocrine Medical History: No Pertinent History Musculoskelatal History: No Pertinent History GI Medical History: GERD History: No Pertinent History Pyscho-Social History: Anxiety Male Reproductive Disorders: No Pertinent History Comment: COVID 2019, JOSS MCKYA 2021 - Past Surgical History Past Surgical History: Yes Neuro Surgical History: No Pertinent History Cardiac History: No Pertinent History Respiratory Surgery: No Pertinent History GI Surgical History: Appendectomy Genitourinary Surgical Hx: No Pertinent History Musculskeletal Surgical Hx: No Pertinent History Male Surgical History: Other Other Surgical History: prostate biopsy,melanoma removed from back. - Social History Smoking Status: Former smoker Exposure to second hand smoke: No Alcohol: Rarely Drug Use: none - Physical Exam Vital Signs: Vital Signs - 24 hr Temp Pulse Resp BP BP Pulse Ox 11/19/22 09:51 97.6 F 72 18 100/56 96 11/19/22 08:30 69 14 110/56 93 L 11/19/22 08:00 70 14 104/51 93 L 11/19/22 07:30 77 20 107/52 92 L 11/19/22 07:02 88 L 11/19/22 07:00 75 19 96/52 93 L 11/19/22 06:30 74 18 94/49 94 L 11/19/22 06:17 75 13 119/64 96 11/19/22 06:15 95 11/19/22 06:00 76 16 114/60 94 L 11/19/22 05:29 97.1 F 74 18 114/50 88 L General Appearance: no apparent distress Neurologic Exam: alert, oriented x 3, cooperative Eye Exam: PERRL/EOMI Ears, Nose, Throat Exam: dry mucous membranes Neck Exam: normal inspection Respiratory Exam: normal breath sounds, lungs clear Cardiovascular Exam: regular rate/rhythm, normal heart sounds Gastrointestinal/Abdomen Exam: soft, normal bowel sounds Rectal Exam: not done Back Exam: normal inspection Extremity Exam: normal inspection Skin Exam: normal color Results - Labs Lab/Micro Results: Lab Results-Last 24 Hours 11/19/22 11/19/22 11/19/22 Range/Units 06:31 06:31 06:31 WBC 9.9 (4.0-10.5) x10^3/uL RBC 4.96 (4.1-5.6) x10^6/uL Hgb 13.4 (12.5-18.0) g/dL Hct 41.7 L (42-50) % MCV 84.1 (78-100) fL MCH 27.0 (26-32) pg MCHC 32.1 (32-36) g/dL RDW 15.0 H (11.5-14.0) % Plt Count 124 L (150-450) x10^3/uL MPV 9.9 (7.5-11.0) fL Gran % 76.8 H (36.0-66.0) % Immature Gran % (Auto) 0.6 H (0.00-0.4) % Nucleat RBC Rel Count 0.0 (0.00-0.1) % Eos # (Auto) 0.04 (0-0.5) x10^3/uL Immature Gran # (Auto) 0.06 H (0.00-0.03) x10^3u/L Absolute Lymphs (auto) 0.97 L (1.0-4.6) x10^3/uL Absolute Monos (auto) 1.18 (0.0-1.3) x10^3/uL Absolute Nucleated RBC 0.00 (0.00-0.01) x10^3u/L Lymphocytes % 9.8 L (24.0-44.0) % Monocytes % 11.9 (0.0-12.0) % Eosinophils % 0.4 (0.00-5.0) % Basophils % 0.5 (0.0-0.4) % Absolute Granulocytes 7.64 H (1.4-6.9) x10^3/uL Basophils # 0.05 (0-0.4) x10^3/uL Sodium 138 (137-145) mmol/L Potassium 4.1 (3.5-5.1) mmol/L Chloride 103 (98-107) mmol/L Carbon Dioxide 22 (22-30) mmol/L Anion Gap 17.4 H (5-15) MEQ/L BUN 32 H (9-20) mg/dL Creatinine 2.06 H (0.66-1.25) mg/dL Estimated GFR 33.4 ML/MIN Glucose 123 H (74-106) mg/dL Lactic Acid (0.4-2.0) Calcium 8.8 (8.4-10.2) mg/dL Total Bilirubin 0.50 (0.2-1.3) mg/dL AST 30 (17-59) U/L ALT 20 (0-50) U/L Alkaline Phosphatase 61 (38-126) U/L Troponin I < 0.012 (0.000-0.034) ng/mL Serum Total Protein 7.1 (6.3-8.2) g/dL Albumin 4.2 (3.5-5.0) g/dL Influenza Type A Ag (NEGATIVE) Influenza Type B Ag (NEGATIVE) RSV (PCR) (NEGATIVE) SARS-CoV-2 (PCR) (NEGATIVE) 11/19/22 11/19/22 Range/Units 06:31 06:50 WBC (4.0-10.5) x10^3/uL RBC (4.1-5.6) x10^6/uL Hgb (12.5-18.0) g/dL Hct (42-50) % MCV (78-100) fL MCH (26-32) pg MCHC (32-36) g/dL RDW (11.5-14.0) % Plt Count (150-450) x10^3/uL MPV (7.5-11.0) fL Gran % (36.0-66.0) % Immature Gran % (Auto) (0.00-0.4) % Nucleat RBC Rel Count (0.00-0.1) % Eos # (Auto) (0-0.5) x10^3/uL Immature Gran # (Auto) (0.00-0.03) x10^3u/L Absolute Lymphs (auto) (1.0-4.6) x10^3/uL Absolute Monos (auto) (0.0-1.3) x10^3/uL Absolute Nucleated RBC (0.00-0.01) x10^3u/L Lymphocytes % (24.0-44.0) % Monocytes % (0.0-12.0) % Eosinophils % (0.00-5.0) % Basophils % (0.0-0.4) % Absolute Granulocytes (1.4-6.9) x10^3/uL Basophils # (0-0.4) x10^3/uL Sodium (137-145) mmol/L Potassium (3.5-5.1) mmol/L Chloride (98-107) mmol/L Carbon Dioxide (22-30) mmol/L Anion Gap (5-15) MEQ/L BUN (9-20) mg/dL Creatinine (0.66-1.25) mg/dL Estimated GFR ML/MIN Glucose (74-106) mg/dL Lactic Acid 1.1 (0.4-2.0) Calcium (8.4-10.2) mg/dL Total Bilirubin (0.2-1.3) mg/dL AST (17-59) U/L ALT (0-50) U/L Alkaline Phosphatase (38-126) U/L Troponin I (0.000-0.034) ng/mL Serum Total Protein (6.3-8.2) g/dL Albumin (3.5-5.0) g/dL Influenza Type A Ag NEGATIVE (NEGATIVE) Influenza Type B Ag NEGATIVE (NEGATIVE) RSV (PCR) NEGATIVE (NEGATIVE) SARS-CoV-2 (PCR) POSITIVE A (NEGATIVE) - Radiology Impressions Radiology Exams & Impressions: Radiology Procedures Category Date Time Status CHEST 1 VIEW (PORTABLE) Stat Exams 11/19/22 06:05 Completed - Other Procedures and Tests Respiratory Therapy 11/19/22 09:10 Oxygen Nasal Cannula 4 lpm Respiratory Therapy Consult ONCE Assessment/Plan (1) COVID-19 Current Visit: Yes Status: Acute Assessment & Plan: -Trend LDH, D-Dimer, CRP daily -Currently on 4L o2, RA at baseline, titrate oxygen with goal of >92% -CXR reviewed showing no acute cardio/pulm etiology -Dexamethasone 6 mg IV daily x 10 Days -Paxlovid - pharmacy to dose -CK, troponin, ferritin, PT/INR -Lovenox mg/kg mg/kg BID (based on D-Dimer) (D-Dimer pending) for now 40mg On D/C: -Steroid Taper -High Risk DVT: Xarelto 10mg qD x 30 days Code(s): U07.1 - COVID-19 (2) Acute renal injury Current Visit: Yes Status: Acute Assessment & Plan: -Most likely secondary to dehydration -Avoid [place]/ARBS NSAID -Continue gentle hydration -Monitor renal/lytes Code(s): N17.9 - ACUTE KIDNEY FAILURE, UNSPECIFIED (3) Dehydration Current Visit: Yes Status: Acute Assessment & Plan: -see iza Code(s): E86.0 - DEHYDRATION (4) Diarrhea Current Visit: Yes Status: Acute Assessment & Plan: -Patient states he has only had two episodes Code(s): R19.7 - DIARRHEA, UNSPECIFIED (5) Vasovagal syncope Current Visit: Yes Status: Acute Assessment & Plan: -No LOC, no head trauma, most likely secondary to hypovolemia Code(s): R55 - SYNCOPE AND COLLAPSE (6) Acute respiratory failure with hypoxia Current Visit: No Status: Acute Assessment & Plan: -see covid Code(s): J96.01 - ACUTE RESPIRATORY FAILURE WITH HYPOXIA (7) Hypertension Current Visit: No Status: Chronic Qualifiers: Assessment & Plan: -Stable, continue home meds Code(s): I10 - ESSENTIAL (PRIMARY) HYPERTENSION Telemedicine Encounter - Telemedicine Encounter Telemedicine Encounter: The entirety of this encounter was performed via Telemedicine"
[2022-11-19] MEDS ORDERED: Hydromorphone 1 mg/ml Injection IV PRN (10:42)
[2022-11-19] MEDS ORDERED: Zofran 4 MG/2 ML VIAL IV PRN (10:42)
[2022-11-19] MEDS ORDERED: HYDROCODONE-CHLORPHEN ER SUSP PO PRN (10:42)
[2022-11-19] MEDS ORDERED: VENTOLIN COMMON CANISTER IH PRN (10:42)
[2022-11-19] MEDS ORDERED: TYLENOL 325 MG PO PRN (10:42)
[2022-11-19] MEDS ORDERED: PHARMACY DOSING REQUEST MC ONE (10:49)
[2022-11-19 11:27] LABS: ADD URINE CULTURE? NO (NO); Appearance Clear (Clear); Bacteria None Seen /HPF (None Seen); Bilirubin Negative (Negative); Blood Negative (Negative); Epithelial Cells None Seen /HPF (None Seen); Glucose, Urine Negative (Negative); Ketones Negative (Negative); Leukocyte Esterase Negative (Negative); Nitrite Negative (Negative); Ph 5.5 (4.6-8.0); Protein,Urine Dip Trace (Negative); RBC 0-2 /HPF (0-5); Urobilinogen 0.2 mg/dL (0.2); WBC 0-2 /HPF (0-5)
[2022-11-19] MEDS: PAXLOVID 150-100 MG PACK (EUA) (RENAL DOSING) PO SCH ×2 (11:32→22:32)
[2022-11-19] MEDS: ENOXAPARIN SODIUM SQ SCH (11:32)
[2022-11-19] MEDS: PROTONIX 40 MG IV IV SCH (11:32)
[2022-11-19] MEDS: Sodium Chloride 0.9% 1000 ML 1,000 ML IV SCH ×2 (11:32→22:32)
[2022-11-19 12:25] LABS: Ferritin 71.2 ng/mL (17.9-464)
[2022-11-19] MEDS: ROCEPHIN 1 Gm-D5w 50 ml Bag** 1 G/50 ML IVPB IV SCH (14:54)
[2022-11-19 15:25] LABS: INR 1.01 (0.8-3.0)
[2022-11-19 15:26] LABS: D-DIMER QUANTITATIVE 0.82 mg/L (0.0-0.50)
[2022-11-19] MEDS: Timolol 0.25% Opth Sol 5 ML OP SCH (15:40)
[2022-11-19] MEDS: Aldactone 25 MG PO SCH (15:42)
[2022-11-19] MEDS: hydroDIURIL 25 MG PO SCH (15:42)
[2022-11-19] MEDS: ZYLOPRIM 300 MG PO SCH (15:42)
[2022-11-19] MEDS: Proscar 5 MG PO SCH (15:42)
[2022-11-19] MEDS ORDERED: Protonix 40MG Tablet PO SCH (16:00)
[2022-11-19] MEDS ORDERED: DECADRON 10MG INJ. IV SCH (16:00)
[2022-11-19] MEDS ORDERED: MAGNESIUM SULF 2 G/50 ML BAG 2 GM/50 ML PIGGYBACK IV ONE (16:07)
[2022-11-19] MEDS: COREG 12.5 MG PO SCH (22:33)
[2022-11-20 05:14] LABS: Absolute Neutrophil Ct (ANC) 7.03 x10^3/uL (1.4-6.9); BASOPHIL % 0.1 % (0.0-0.4); Basophil (Absolute #) 0.01 x10^3/uL (0-0.4); Eosinophil % 0.1 % (0.00-5.0); Eosinophil (Absolute #) 0.01 x10^3/uL (0-0.5); Hematocrit 39.4 % (42-50); Hemoglobin 12.8 g/dL (12.5-18.0); IMMATURE GRAN # 0.05 x10^3u/L (0.00-0.03); IMMATURE GRAN % 0.6 % (0.00-0.4); Lymphocyte (Absolute #) 0.92 x10^3/uL (1.0-4.6); Lymphocytes % 10.3 % (24.0-44.0); Mean Cell Volume 81.9 fL (78-100); Mean Corpuscular Hemoglobin 26.6 pg (26-32); Mean Corpuscular Hgb Concent. 32.5 g/dL (32-36); Mean Platelet Volume 10.6 fL (7.5-11.0); Monocyte (Absolute #) 0.87 x10^3/uL (0.0-1.3); Monocytes % 9.8 % (0.0-12.0); Neutrophil % 79.1 % (36.0-66.0); Platelet Count 139 x10^3/uL (150-450); Red Blood Count 4.81 x10^6/uL (4.1-5.6); White Blood Count 8.9 x10^3/uL (4.0-10.5)
[2022-11-20 06:05] LABS: ALKALINE PHOSPHATASE 58 U/L (38-126); ANION GAP 16.5 MEQ/L (5-15); BLOOD UREA NITROGEN 29 mg/dL (9-20); CHLORIDE 110 mmol/L (98-107); Calcium 9.1 mg/dL (8.4-10.2); Carbon Dioxide 19 mmol/L (22-30); EST GLOMERULAR FILTRATION RATE > 60.0 ML/MIN; Glucose 139 mg/dL (74-106); MAGNESIUM 2.1 mg/dL (1.6-2.3); PROCALCITONIN 0.166 ng/mL (0.030-0.080); Potassium 4.2 mmol/L (3.5-5.1); SGOT/AST 29 U/L (17-59); SGPT/ALT 21 U/L (0-50); SODIUM 141 mmol/L (137-145); Total Protein 6.8 g/dL (6.3-8.2)
[2022-11-20] MEDS: PROTONIX 40 MG IV IV SCH (08:54)
[2022-11-20] MEDS: Sodium Chloride 0.9% 1000 ML 1,000 ML IV SCH ×2 (08:54→20:04)
[2022-11-20] MEDS: Protonix 40MG Tablet PO SCH (09:39)
[2022-11-20] MEDS: ZYLOPRIM 300 MG PO SCH (09:39)
[2022-11-20] MEDS: Aldactone 25 MG PO SCH (09:39)
[2022-11-20] MEDS: COREG 12.5 MG PO SCH ×2 (09:39→22:04)
[2022-11-20] MEDS: hydroDIURIL 25 MG PO SCH (09:39)
[2022-11-20] MEDS: DECADRON 10MG INJ. IV SCH (09:40)
[2022-11-20] MEDS: PAXLOVID 150-100 MG PACK (EUA) (RENAL DOSING) PO SCH ×2 (09:41→22:05)
[2022-11-20] MEDS: ENOXAPARIN SODIUM SQ SCH (09:41)
[2022-11-20] MEDS: Proscar 5 MG PO SCH (09:46)
[2022-11-20] MEDS: Timolol 0.25% Opth Sol 5 ML OP SCH (09:46)
[2022-11-20] MEDS: ROCEPHIN 1 Gm-D5w 50 ml Bag** 1 G/50 ML IVPB IV SCH (09:49)
[2022-11-20] MEDS ORDERED: NON-FORMULARY ITEM (Omeprazole [Omeprazole] 40 MG Capsule.Dr) PO SCH (10:00)
--- NOTE | 2022-11-20 12:39 | PCM.NOTE ---
Date and Time: 11/20/22 1223 Subjective Assessment: Mr.HALE HERRERA is a 77 year old male with pmhx of HTN, Gout, HLD, GERD, anxiety, glaucoma, and migraines that presented to ED 11/19/22 via EMS after a near- syncopal episode. Patient states that on Wednesday he developed a cough, arthralgias, and myalgias which were progressively worsening daily. He states he has not consumed much to eat or drink in two days. He reported for COVID testing yesterday which was negative. the patient states he woke up with sweats/chills, extreme weakness, and had two episode of watery diarrhea and when he stood up after toileting he became faint. Patient was able to lay himself on the ground with no trauma, no LOC. Patient states that he is not short of breath, but upon arrival to the ED the patient was hypoxic with spo2 @ 80%. Patient was placed on 4L NC with spo2 with an O2 of 96%. Pt was started on Decadron, Paxlovid, as well as Rocephin as he had an elevated procal. Today he explains he is feeling much better. He is still requiring oxygen. It has been turned down to 2LNC and O2 is at 93%. Procal has improved. He denies CP, SOB, Abd. pain, N/V/D. - Review of Systems Constitutional: No Fever, No Chills Eyes: No Symptoms Ears, Nose, & Throat: No Symptoms Respiratory: Cough, No Short Of Breath Cardiac: No Chest Pain, No Edema, No Syncope Abdominal/Gastrointestinal: No Abdominal Pain, No Nausea, No Vomiting, No Diarrhea Genitourinary Symptoms: No Dysuria Musculoskeletal: No Back Pain, No Neck Pain Skin: No Rash Neurological: No Dizziness, No Focal Weakness, No Sensory Changes Psychological: No Symptoms Endocrine: No Symptoms Hematologic/Lymphatic: No Symptoms Immunological/Allergic: No Symptoms OBJECTIVE DATA Vital Signs: Vital Signs - 24 hr Temp Pulse Resp BP BP Pulse Ox 11/20/22 09:36 62 12 93 L 11/20/22 07:28 96.8 F 60 14 167/65 96 11/20/22 06:00 18 11/20/22 05:58 87 24 97 11/20/22 04:00 98.9 F 63 18 180/68 95 11/20/22 02:00 97.6 F 82 16 173/31 99 11/20/22 00:00 69 18 95 11/19/22 22:00 98.0 F 87 19 135/72 11/19/22 20:00 97.9 F 87 18 131/58 99 11/19/22 19:04 95 11/19/22 18:30 85 18 95 11/19/22 18:00 84 16 95 11/19/22 15:50 97.1 F 77 17 134/70 94 L 11/19/22 14:00 78 17 98 Pain Assessment - Last Documented Pain Intensity 0 Intake and Output: Intake & Output 11/18/22 11/19/22 11/20/22 11/21/22 11:59 11:59 11:59 11:59 Intake Total 1860 Output Total 2000 Balance -140 Weight 100 kg Lab Results: Lab Results-Last 24 Hours 11/19/22 11/19/22 11/19/22 Range/Units 10:30 14:55 14:55 WBC (4.0-10.5) x10^3/uL RBC (4.1-5.6) x10^6/uL Hgb (12.5-18.0) g/dL Hct (42-50) % MCV (78-100) fL MCH (26-32) pg MCHC (32-36) g/dL RDW (11.5-14.0) % Plt Count (150-450) x10^3/uL MPV (7.5-11.0) fL Gran % (36.0-66.0) % Immature Gran % (Auto) (0.00-0.4) % Nucleat RBC Rel Count (0.00-0.1) % Eos # (Auto) (0-0.5) x10^3/uL Immature Gran # (Auto) (0.00-0.03) x10^3u/L Absolute Lymphs (auto) (1.0-4.6) x10^3/uL Absolute Monos (auto) (0.0-1.3) x10^3/uL Absolute Nucleated RBC (0.00-0.01) x10^3u/L Lymphocytes % (24.0-44.0) % Monocytes % (0.0-12.0) % Eosinophils % (0.00-5.0) % Basophils % (0.0-0.4) % Absolute Granulocytes (1.4-6.9) x10^3/uL Basophils # (0-0.4) x10^3/uL PT 11.0 (9.4-12.5) SECONDS INR 1.01 (0.8-3.0) D-Dimer 0.82 H* (0.0-0.50) mg/L Sodium (137-145) mmol/L Potassium (3.5-5.1) mmol/L Chloride (98-107) mmol/L Carbon Dioxide (22-30) mmol/L Anion Gap (5-15) MEQ/L BUN (9-20) mg/dL Creatinine (0.66-1.25) mg/dL Estimated GFR ML/MIN Glucose (74-106) mg/dL Calcium (8.4-10.2) mg/dL Magnesium (1.6-2.3) mg/dL Ferritin 71.2 (17.9-464) ng/mL Total Bilirubin (0.2-1.3) mg/dL AST (17-59) U/L ALT (0-50) U/L Alkaline Phosphatase (38-126) U/L Creatine Kinase 98 (55-170) U/L Troponin I < 0.012 (0.000-0.034) ng/mL Serum Total Protein (6.3-8.2) g/dL Albumin (3.5-5.0) g/dL Procalcitonin (0.030-0.080) ng/mL 11/20/22 11/20/22 11/20/22 Range/Units 04:45 04:45 04:45 WBC 8.9 (4.0-10.5) x10^3/uL RBC 4.81 (4.1-5.6) x10^6/uL Hgb 12.8 (12.5-18.0) g/dL Hct 39.4 L (42-50) % MCV 81.9 (78-100) fL MCH 26.6 (26-32) pg MCHC 32.5 (32-36) g/dL RDW 15.0 H (11.5-14.0) % Plt Count 139 L (150-450) x10^3/uL MPV 10.6 (7.5-11.0) fL Gran % 79.1 H (36.0-66.0) % Immature Gran % (Auto) 0.6 H (0.00-0.4) % Nucleat RBC Rel Count 0.0 (0.00-0.1) % Eos # (Auto) 0.01 (0-0.5) x10^3/uL Immature Gran # (Auto) 0.05 H (0.00-0.03) x10^3u/L Absolute Lymphs (auto) 0.92 L (1.0-4.6) x10^3/uL Absolute Monos (auto) 0.87 (0.0-1.3) x10^3/uL Absolute Nucleated RBC 0.00 (0.00-0.01) x10^3u/L Lymphocytes % 10.3 L (24.0-44.0) % Monocytes % 9.8 (0.0-12.0) % Eosinophils % 0.1 (0.00-5.0) % Basophils % 0.1 (0.0-0.4) % Absolute Granulocytes 7.03 H (1.4-6.9) x10^3/uL Basophils # 0.01 (0-0.4) x10^3/uL PT (9.4-12.5) SECONDS INR (0.8-3.0) D-Dimer 0.81 H* (0.0-0.50) mg/L Sodium 141 (137-145) mmol/L Potassium 4.2 (3.5-5.1) mmol/L Chloride 110 H (98-107) mmol/L Carbon Dioxide 19 L (22-30) mmol/L Anion Gap 16.5 H (5-15) MEQ/L BUN 29 H (9-20) mg/dL Creatinine 1.20 (0.66-1.25) mg/dL Estimated GFR > 60.0 ML/MIN Glucose 139 H (74-106) mg/dL Calcium 9.1 (8.4-10.2) mg/dL Magnesium 2.1 (1.6-2.3) mg/dL Ferritin (17.9-464) ng/mL Total Bilirubin 0.30 (0.2-1.3) mg/dL AST 29 (17-59) U/L ALT 21 (0-50) U/L Alkaline Phosphatase 58 (38-126) U/L Creatine Kinase (55-170) U/L Troponin I (0.000-0.034) ng/mL Serum Total Protein 6.8 (6.3-8.2) g/dL Albumin 4.0 (3.5-5.0) g/dL Procalcitonin 0.166 H (0.030-0.080) ng/mL Radiology Exams: Radiology Procedures Category Date Time Status CHEST 1 VIEW (PORTABLE) Stat Exams 11/19/22 06:05 Completed Multi-Disciplinary Progress Notes: Multi-Disciplinary Progress Notes 11/20/22 10:26 Case Management Note by Patrica Mello S/W PATIENT VIA PHONE- HE CONTINUES TO DENY ANY NEW NEEDS AT TIME OF DC. HE REPORTS HIS WILL BE ABLE TO ASSIST HIM AT DC IF NEEDED. S/W PATIENT ABOUT IF HE WOULD NEED OXYGEN AT DC- HE REPORTS HE HAS USED [facility] IN THE PAST AND WOULD LIKE THEM AGAIN. PATIENT CURRENTLY WEANING DOWN FROM 4L. ANTICIPATE TO GO TO ROOM AIR, HOWEVER, OXYGEN ORDER FORM WITH INSTRUCTIONS PLACED ON CHART IF NEEDED. PATIENT'S PRIMARY RN GIVEN PULSE OX WITH INSTRUCTIONS TO GIVE TO PATIENT SO HE HAS IT AT DC. Initialized on 11/20/22 10:26 - END OF NOTE Assessment/Plan (1) COVID-19 Current Visit: Yes Status: Acute Assessment & Plan: -Trend LDH, D-Dimer, CRP daily -Currently on 4L o2, RA at baseline, titrate oxygen with goal of >92% -CXR reviewed showing no acute cardio/pulm etiology -Dexamethasone 6 mg IV daily x 10 Days -Paxlovid - pharmacy to dose -CK, troponin, ferritin, PT/INR -Lovenox mg/kg mg/kg BID (based on D-Dimer) (D-Dimer pending) for now 40mg On D/C: -Steroid Taper -High Risk DVT: Xarelto 10mg qD x 30 days 11/20 - 2LNC at 93% - sxs improved since admission - Rocephin started due to procal elevated yesterday -Procal improving 0.166 Code(s): U07.1 - COVID-19 (2) Acute renal injury Current Visit: Yes Status: Acute Assessment & Plan: -Most likely secondary to dehydration -Avoid AUGUSTA/ARBS NSAID -Continue gentle hydration -Monitor renal/lytes 11/20 - Labs improving- trend Code(s): N17.9 - ACUTE KIDNEY FAILURE, UNSPECIFIED (3) Dehydration Current Visit: Yes Status: Acute Assessment & Plan: -see iza Code(s): E86.0 - DEHYDRATION (4) Diarrhea Current Visit: Yes Status: Acute Assessment & Plan: - resolved Code(s): R19.7 - DIARRHEA, UNSPECIFIED (5) Vasovagal syncope Current Visit: Yes Status: Acute Assessment & Plan: -No LOC, no head trauma, most likely secondary to hypovolemia - 11/20 - resolved Code(s): R55 - SYNCOPE AND COLLAPSE (6) Acute respiratory failure with hypoxia Current Visit: No Status: Acute Assessment & Plan: -see covid - wean oxygen to Keep O2 > 92% Code(s): J96.01 - ACUTE RESPIRATORY FAILURE WITH HYPOXIA (7) Hypertension Current Visit: No Status: Chronic Qualifiers: Assessment & Plan: -Stable, continue home meds DVT: Lovenox Code status: full PPI: Protonix D/C plan: tomorrow if weaned from oxygen Code(s): I10 - ESSENTIAL (PRIMARY) HYPERTENSION
[2022-11-21] MEDS: Sodium Chloride 0.9% 1000 ML 1,000 ML IV SCH (06:15)
[2022-11-21 06:38] LABS: Hematocrit 42.1 % (42-50); Hemoglobin 13.6 g/dL (12.5-18.0); Mean Cell Volume 82.4 fL (78-100); Mean Corpuscular Hemoglobin 26.6 pg (26-32); Mean Corpuscular Hgb Concent. 32.3 g/dL (32-36); Mean Platelet Volume 10.6 fL (7.5-11.0); Platelet Count 171 x10^3/uL (150-450); Red Blood Count 5.11 x10^6/uL (4.1-5.6); Red Cell Distribution Width 14.8 % (11.5-14.0)
[2022-11-21 06:56] VITALS: TEMP 97.6
[2022-11-21 07:04] LABS: ALBUMIN 4.2 g/dL (3.5-5.0); ALKALINE PHOSPHATASE 60 U/L (38-126); ANION GAP 16.9 MEQ/L (5-15); BLOOD UREA NITROGEN 31 mg/dL (9-20); CHLORIDE 109 mmol/L (98-107); Calcium 9.6 mg/dL (8.4-10.2); Carbon Dioxide 19 mmol/L (22-30); Creatinine 1 1.17 mg/dL (0.66-1.25); EST GLOMERULAR FILTRATION RATE > 60.0 ML/MIN; Glucose 125 mg/dL (74-106); Potassium 4.5 mmol/L (3.5-5.1); SGOT/AST 33 U/L (17-59); SGPT/ALT 21 U/L (0-50); SODIUM 140 mmol/L (137-145); Total Protein 7.1 g/dL (6.3-8.2)
[2022-11-21] MEDS: hydroDIURIL 25 MG PO SCH (10:02)
[2022-11-21] MEDS: COREG 12.5 MG PO SCH (10:02)
[2022-11-21] MEDS: Protonix 40MG Tablet PO SCH (10:02)
[2022-11-21] MEDS: ZYLOPRIM 300 MG PO SCH (10:02)
[2022-11-21] MEDS: Aldactone 25 MG PO SCH (10:02)
[2022-11-21] MEDS: Timolol 0.25% Opth Sol 5 ML OP SCH (10:03)
[2022-11-21] MEDS: DECADRON 10MG INJ. IV SCH (10:03)
[2022-11-21] MEDS: ENOXAPARIN SODIUM SQ SCH (10:04)
[2022-11-21] MEDS: Proscar 5 MG PO SCH (10:05)
[2022-11-21] MEDS: PROTONIX 40 MG IV IV SCH (10:05)
[2022-11-21] MEDS: PAXLOVID 150-100 MG PACK (EUA) (RENAL DOSING) PO SCH (10:06)
[2022-11-21] MEDS: ROCEPHIN 1 Gm-D5w 50 ml Bag** 1 G/50 ML IVPB IV SCH (10:06)
--- NOTE | 2022-11-21 12:00 | PCM.DS ---
Discharge Summary Date of Admission: 11/19/22 09:06 Date of Discharge: 11/21/22 Admitting Physician: JULIO WILLSON MD Primary Care Provider: SERGE COWART <RAFFY CHISHOLM - Last Filed: 11/21/22 11:54> Date of Admission: 11/19/22 09:06 Date of Discharge: 11/21/22 Admitting Physician: JULIO WILLSON MD Primary Care Provider: SERGE COWART <JULIO WILLSON - Last Filed: 11/21/22 13:54> Allergies <RAFFY CHISHOLM - Last Filed: 11/21/22 11:54> <JULIO WILLSON - Last Filed: 11/21/22 13:54> Allergies No Known Drug Allergies Allergy (Verified 11/19/22 05:30) Hospital Summary - Hospital Course Hospital Course: Mr.HALE HERRERA is a 77 year old male with pmhx of HTN, Gout, HLD, GERD, anxiety, glaucoma, and migraines. He presented to ED 11/19/22 via EMS after a near- syncopal episode. Patient states that on Wednesday he developed a cough, arthralgias, and myalgias which were progressively worsening daily. He states he has not consumed much to eat or drink in two days. He reported for COVID testing [employer] which was negative. the patient states he woke up with sweats/c hills, extreme weakness, and had two episode of watery diarrhea and when he stood up after toileting he became faint. Patient was able to lay himself on the ground with no trauma, no LOC. Patient states that he is not short of breath, but upon arrival to the ED the patient was hypoxic with spo2 @ 80%. Patient was placed on 4L NC with spo2 with an O2 of 96%. Pt was started on Decadron, Paxlovid, as well as Rocephin as he had an elevated procal. Yesterday he he was feeling much better but still requiring oxygen. It has been turned down to 2LNC and O2 is at 93%. Procal has improved. He continues to require oxygen and qualified for home O2. He reports a similar hospital admission last year where he needed to go home with oxygen. He is ok with this and would like to go home today. Home oxygen has been set up by RT. He denies CP, SOB, Abd. pain, N/V/D. - Vitals & Intake/Output Vital Signs: Vital Signs Temperature 97.6 F 11/21/22 06:00 Pulse Rate 60 11/21/22 10:00 Respiratory Rate 18 11/21/22 10:00 Blood Pressure 195/87 11/21/22 10:00 O2 Sat by Pulse Oximetry 94 L 11/21/22 10:00 Intake & Output: Intake & Output 11/18/22 11/19/22 11/20/22 11/21/22 11:59 11:59 11:59 11:59 Intake Total 1860 2927 Output Total 1999 3200 Balance -140 -273 Weight 100 kg - Lab Result Diagrams: 11/21/22 05:37 11/21/22 05:37 Lab Results-Last 24 Hrs: Lab Results-Last 24 Hours 11/21/22 11/21/22 11/21/22 Range/Units 05:00 05:00 05:37 WBC 13.0 H (4.0-10.5) x10^3/uL RBC 5.11 (4.1-5.6) x10^6/uL Hgb 13.6 (12.5-18.0) g/dL Hct 42.1 (42-50) % MCV 82.4 (78-100) fL MCH 26.6 (26-32) pg MCHC 32.3 (32-36) g/dL RDW 14.8 H (11.5-14.0) % Plt Count 171 (150-450) x10^3/uL MPV 10.6 (7.5-11.0) fL D-Dimer 0.64 H* (0.0-0.50) mg/L Sodium (137-145) mmol/L Potassium (3.5-5.1) mmol/L Chloride (98-107) mmol/L Carbon Dioxide (22-30) mmol/L Anion Gap (5-15) MEQ/L BUN (9-20) mg/dL Creatinine (0.66-1.25) mg/dL Estimated GFR ML/MIN Glucose (74-106) mg/dL Calcium (8.4-10.2) mg/dL Total Bilirubin (0.2-1.3) mg/dL AST (17-59) U/L ALT (0-50) U/L Alkaline Phosphatase (38-126) U/L Serum Total Protein (6.3-8.2) g/dL Albumin (3.5-5.0) g/dL Procalcitonin 0.108 H (0.030-0.080) ng/mL 11/21/22 Range/Units 05:37 WBC (4.0-10.5) x10^3/uL RBC (4.1-5.6) x10^6/uL Hgb (12.5-18.0) g/dL Hct (42-50) % MCV (78-100) fL MCH (26-32) pg MCHC (32-36) g/dL RDW (11.5-14.0) % Plt Count (150-450) x10^3/uL MPV (7.5-11.0) fL D-Dimer (0.0-0.50) mg/L Sodium 140 (137-145) mmol/L Potassium 4.5 (3.5-5.1) mmol/L Chloride 109 H (98-107) mmol/L Carbon Dioxide 19 L (22-30) mmol/L Anion Gap 16.9 H (5-15) MEQ/L BUN 31 H (9-20) mg/dL Creatinine 1.17 (0.66-1.25) mg/dL Estimated GFR > 60.0 ML/MIN Glucose 125 H (74-106) mg/dL Calcium 9.6 (8.4-10.2) mg/dL Total Bilirubin 0.30 (0.2-1.3) mg/dL AST 33 (17-59) U/L ALT 21 (0-50) U/L Alkaline Phosphatase 60 (38-126) U/L Serum Total Protein 7.1 (6.3-8.2) g/dL Albumin 4.2 (3.5-5.0) g/dL Procalcitonin (0.030-0.080) ng/mL Micro Results-Entire Visit: Microbiology 11/19/22 06:57 Blood Culture - Preliminary Blood 11/19/22 06:31 Blood Culture - Preliminary Blood - Procedures and Test Procedures and Tests throughout Hospitalization: Therapy Orders & Screens 11/19/22 09:10 Oxygen Nasal Cannula 4 lpm Comment: Respiratory Therapy Consult ONCE Comment: Reason For Exam: 11/19/22 10:42 Respiratory Therapy Consult ROUTINE Comment: Reason For Exam: Diagnosis: COVID-19 DETECTED, ACUTE HYPOXIC RESPIRATORY FAILURE, DIARRHEA 11/19/22 19:03 Respiratory Therapy Assessment DAILY Comment: Diagnosis: COVID-19 DETECTED, ACUTE HYPOXIC RESPIRATORY FAILURE, DIARRHEA 11/21/22 07:30 Qualify for Home Oxygen TODAY Comment: Diagnosis: COVID-19 DETECTED, ACUTE HYPOXIC RESPIRATORY FAILURE, DIARRHEA <RAFFY CHISHOLM - Last Filed: 11/21/22 11:54> - Vitals & Intake/Output Vital Signs: Vital Signs Temperature 97.6 F 11/21/22 12:00 Pulse Rate 82 11/21/22 12:50 Respiratory Rate 16 11/21/22 12:00 Blood Pressure 140/68 11/21/22 12:50 O2 Sat by Pulse Oximetry 96 11/21/22 12:00 Intake & Output: Intake & Output 11/19/22 11/20/22 11/21/22 11/22/22 11:59 11:59 11:59 11:59 Intake Total 1860 2927 Output Total 1999 3200 Balance -140 -273 Weight 100 kg - Lab Result Diagrams: 11/21/22 05:37 11/21/22 05:37 Lab Results-Last 24 Hrs: Lab Results-Last 24 Hours 11/21/22 11/21/22 11/21/22 Range/Units 05:00 05:00 05:37 WBC 13.0 H (4.0-10.5) x10^3/uL RBC 5.11 (4.1-5.6) x10^6/uL Hgb 13.6 (12.5-18.0) g/dL Hct 42.1 (42-50) % MCV 82.4 (78-100) fL MCH 26.6 (26-32) pg MCHC 32.3 (32-36) g/dL RDW 14.8 H (11.5-14.0) % Plt Count 171 (150-450) x10^3/uL MPV 10.6 (7.5-11.0) fL D-Dimer 0.64 H* (0.0-0.50) mg/L Sodium (137-145) mmol/L Potassium (3.5-5.1) mmol/L Chloride (98-107) mmol/L Carbon Dioxide (22-30) mmol/L Anion Gap (5-15) MEQ/L BUN (9-20) mg/dL Creatinine (0.66-1.25) mg/dL Estimated GFR ML/MIN Glucose (74-106) mg/dL Calcium (8.4-10.2) mg/dL Total Bilirubin (0.2-1.3) mg/dL AST (17-59) U/L ALT (0-50) U/L Alkaline Phosphatase (38-126) U/L Serum Total Protein (6.3-8.2) g/dL Albumin (3.5-5.0) g/dL Procalcitonin 0.108 H (0.030-0.080) ng/mL 11/21/22 Range/Units 05:37 WBC (4.0-10.5) x10^3/uL RBC (4.1-5.6) x10^6/uL Hgb (12.5-18.0) g/dL Hct (42-50) % MCV (78-100) fL MCH (26-32) pg MCHC (32-36) g/dL RDW (11.5-14.0) % Plt Count (150-450) x10^3/uL MPV (7.5-11.0) fL D-Dimer (0.0-0.50) mg/L Sodium 140 (137-145) mmol/L Potassium 4.5 (3.5-5.1) mmol/L Chloride 109 H (98-107) mmol/L Carbon Dioxide 19 L (22-30) mmol/L Anion Gap 16.9 H (5-15) MEQ/L BUN 31 H (9-20) mg/dL Creatinine 1.17 (0.66-1.25) mg/dL Estimated GFR > 60.0 ML/MIN Glucose 125 H (74-106) mg/dL Calcium 9.6 (8.4-10.2) mg/dL Total Bilirubin 0.30 (0.2-1.3) mg/dL AST 33 (17-59) U/L ALT 21 (0-50) U/L Alkaline Phosphatase 60 (38-126) U/L Serum Total Protein 7.1 (6.3-8.2) g/dL Albumin 4.2 (3.5-5.0) g/dL Procalcitonin (0.030-0.080) ng/mL Micro Results-Entire Visit: Microbiology 11/19/22 06:57 Blood Culture - Preliminary Blood 11/19/22 06:31 Blood Culture - Preliminary Blood - Procedures and Test Procedures and Tests throughout Hospitalization: Therapy Orders & Screens 11/19/22 09:10 Oxygen Nasal Cannula 4 lpm Comment: Respiratory Therapy Consult ONCE Comment: Reason For Exam: 11/19/22 10:42 Respiratory Therapy Consult ROUTINE Comment: Reason For Exam: Diagnosis: COVID-19 DETECTED, ACUTE HYPOXIC RESPIRATORY FAILURE, DIARRHEA 11/19/22 19:03 Respiratory Therapy Assessment DAILY Comment: Diagnosis: COVID-19 DETECTED, ACUTE HYPOXIC RESPIRATORY FAILURE, DIARRHEA 11/21/22 07:30 Qualify for Home Oxygen TODAY Comment: Diagnosis: COVID-19 DETECTED, ACUTE HYPOXIC RESPIRATORY FAILURE, DIARRHEA <JULIO WILLSON - Last Filed: 11/21/22 13:54> Discharge Exam General Appearance: no apparent distress, alert Neurologic Exam: alert, oriented x 3, cooperative, normal mood/affect, nml cerebellar function, sensation nml, No motor deficits Eye Exam: PERRL, EOMI, eyes nml inspection Ears, Nose, Throat Exam: normal ENT inspection, pharynx normal, moist mucous membranes Neck Exam: normal inspection, non-tender, supple, full range of motion Respiratory Exam: normal breath sounds, lungs clear, No respiratory distress Cardiovascular Exam: regular rate/rhythm, normal heart sounds Gastrointestinal/Abdomen Exam: soft, No tenderness, No mass Male Genitalia Exam: deferred Rectal Exam: deferred Back Exam: normal inspection, normal range of motion, No CVA tenderness, No vert ebral tenderness Extremity Exam: normal inspection, normal range of motion Skin Exam: normal color, warm, dry <RAFFY CHISHOLM - Last Filed: 11/21/22 11:54> Final Diagnosis/Problem List - Final Discharge Diagnosis/Problem (1) COVID-19 Status: Acute Code(s): U07.1 - COVID-19 (2) Acute renal injury Status: Acute Code(s): N17.9 - ACUTE KIDNEY FAILURE, UNSPECIFIED (3) Dehydration Status: Acute Code(s): E86.0 - DEHYDRATION (4) Diarrhea Status: Acute Code(s): R19.7 - DIARRHEA, UNSPECIFIED (5) Vasovagal syncope Status: Acute Code(s): R55 - SYNCOPE AND COLLAPSE (6) Acute respiratory failure with hypoxia Status: Acute Code(s): J96.01 - ACUTE RESPIRATORY FAILURE WITH HYPOXIA (7) Hypertension Status: Chronic Assessment & Plan: (1) COVID-19 Current Visit: Yes Status: Acute Assessment & Plan: -Trend LDH, D-Dimer, CRP daily -Currently on 4L o2, RA at baseline, titrate oxygen with goal of >92% -CXR reviewed showing no acute cardio/pulm etiology -Dexamethasone 6 mg IV daily x 10 Days -Paxlovid - pharmacy to dose -CK, troponin, ferritin, PT/INR -Lovenox mg/kg mg/kg BID (based on D-Dimer) (D-Dimer pending) for now 40mg On D/C: -Steroid Taper -High Risk DVT: Xarelto 10mg qD x 30 days 11/20 - 2LNC at 93% - sxs improved since admission - Rocephin started due to procal elevated yesterday -Procal improving 0.166 Code(s): U07.1 - COVID-19 (2) Acute renal injury Current Visit: Yes Status: Acute Assessment & Plan: -Most likely secondary to dehydration -Avoid AUGUSTA/ARBS NSAID -Continue gentle hydration -Monitor renal/lytes 11/20 - Labs improving- trend Code(s): N17.9 - ACUTE KIDNEY FAILURE, UNSPECIFIED (3) Dehydration Current Visit: Yes Status: Acute Assessment & Plan: -see iza Code(s): E86.0 - DEHYDRATION (4) Diarrhea Current Visit: Yes Status: Acute Assessment & Plan: - resolved Code(s): R19.7 - DIARRHEA, UNSPECIFIED (5) Vasovagal syncope Current Visit: Yes Status: Acute Assessment & Plan: -No LOC, no head trauma, most likely secondary to hypovolemia - 11/20 - resolved Code(s): R55 - SYNCOPE AND COLLAPSE (6) Acute respiratory failure with hypoxia Current Visit: No Status: Acute Assessment & Plan: -see covid - wean oxygen to Keep O2 > 92% 11/21 - qualified for home O2- RT has set this up for home use. Code(s): J96.01 - ACUTE RESPIRATORY FAILURE WITH HYPOXIA (7) Hypertension Current Visit: No Status: Chronic Qualifiers: Assessment & Plan: -Stable, continue home meds Code(s): I10 - ESSENTIAL (PRIMARY) HYPERTENSION <RAFFY CHISHOLM - Last Filed: 11/21/22 11:54> - Discharge Discharge Date: 11/21/22 <RAFFY CHISHOLM - Last Filed: 11/21/22 11:54> <JULIO WILLSON - Last Filed: 11/21/22 13:54> - Discharge Disposition: Home, Self-Care Condition: Fair Prescriptions: New Nirmatrelvir/Ritonavir [Paxlovid 150-100 mg Pack (Eua) (Renal Dosing)] 1 each PO BID 2 Days #4 Albuterol Common Canister [Ventolin Common Canister] 4 puff IH Q4H PRN PRN 30 Days #1 PRN Reason: Shortness Of Breath/Wheezing Dexamethasone 4 mg [Decadron 4 MG] 6 mg PO DAILY 8 Days #8 tablet Doxycycline Monohydrate 100 mg PO DAILY 5 Days #5 cap Continue Finasteride 5 mg [Proscar 5 MG] 5 mg PO DAILY Omeprazole 40 mg PO DAILY Carvedilol 12.5 mg [Coreg 12.5 mg] 12.5 mg PO BID Spironolact/Hydrochlorothiazid [Spironolactone-Hctz 25-25 Tab] 1 each PO DAILY Rosuvastatin Calcium 40 mg PO DAILY Timolol Maleate 0.25% Eye [Timolol 0.25% Opth Claudette 5 ML] 1 drop OP DAILY Allopurinol 300 mg [Zyloprim 300 mg] 600 mg PO DAILY lisinopriL [Lisinopril] 40 mg PO DAILY Benzonatate 200 mg PO TID PRN PRN Reason: Cough Instructions: COVID-19 (DC), Nirmatrelvir and Ritonavir Follow up with: SERGE COWART NP [Primary Care Provider] - Call for Appointment (CALL WEDNESDAY FOR A 1 WEEK FOLLOW-UP APPOINTMENT. ) Forms: Discharge Instructions
[2022-11-21 12:42] VITALS: RESP 16; O2SAT 96
[2022-11-21 13:30] VITALS: BP 140/68; PULSE 82
== END 2022-11-21 13:27 | disposition home or self-care (01) ==
LOC: ED 05:24 → MED SURG 09:06
PROVIDERS: ADMIT Internal Medicine; ATTEND Internal Medicine
DX: U07.1 COVID-19 (principal); N17.9 Acute kidney failure, unspecified; E86.0 Dehydration; R19.7 Diarrhea, unspecified; R55 Syncope and collapse; J96.01 Acute respiratory failure with hypoxia; I10 Essential (primary) hypertension; Z79.899 Other long term (current) drug therapy; Z20.828 Contact with and (suspected) exposure to other viral communicable diseases
CPT/HCPCS: 0241U; 36000; 36415; 71045; 80053; 81001; 82550; 82728; 83605; 83735; 84145; 84484; 85025; 85027; 85379; 85610; 87040; 93005; 93041; 94760; 94762; 96374; 99285; G0378; Q3014; J0696; J1100; J1650; A9270-GY; J3475